=== PATIENT | male | born 1995 | race Caucasian/White ===

== ENCOUNTER 2023-06-11 08:52 | Outpatient (AMB) | payer OTHER, SELFPAY ==
--- NOTE | 2023-06-11 09:13 | A.OFFPC_ITS ---
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 Lump left side of neck. 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 He reports a pmhx of childhood asthma- no hospitalizations or intubations. He has not been on meds for years. 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 He does report a lump on the left side of his neck that he noted about 4-5 months ago. He states he made this appointment because he noted that it has not really gone away. No fevers, chills, nightsweats, weight loss, difficulty swallowing. No n/v. No difficulty swallowing. He was sick with a viral uri prior to developing the lump. No overlying skin changes. Denies frequent infections. He does request STD screening today but is asymptomatic. He works full-time as a high school teacher vocational training. COUNTS INCLUDE 234 BEDS AT THE [facility] Family History (Updated 06/11/23 @ 09:44 by Amairani Wang CMA) Mother Diabetes Maternal Grandmother Diabetes Father Skin cancer Social History Housing: House Patient Tobacco Use Status: Never used Tobacco e-Cigarette/Vaping Use: Never Used Second Hand Smoke Exposure: No service: No Current occupational status: employed Current occupation: [employer] Current occupational exposures/hazards: No Cognitive needs: No Hearing needs: No Vision needs: No Questionnaire PHQ-9 Over the last 2 weeks, how often have you been bothered by any of the following problems? 1. Little interest or pleasure in doing things: not at all 2. Feeling down, depressed, or hopeless: not at all 3. Trouble falling or staying asleep, or sleeping too much: not at all 4. Feeling tired or having little energy: not at all 5. Poor appetite or overeating: not at all 6. Feeling bad about yourself - or that you are a failure or have let yourself or your family down: not at all 7. Trouble concentrating on things, such as reading the newspaper or watching television: not at all 8. Moving or speaking so slowly that other people could have noticed. Or the opposite - being so fidgety or restless that you have been moving around a lot more than usual: not at all 9. Thoughts that you would be better off or of hurting yourself in some way: not at all Total score: 0 Depression Screening Interpretation: Negative Depression Screening Done: Yes 45309 - PHQ-9 Billing: Yes Source: Developed by Drs. Keanu Marquez, Shefali Beck, Josiah Montana and colleagues, with an educational reynaldo from [employer]. Thrive Questionnaire Date Thrive assessed: 06/11/23 I am a: Patient What is your living situation today?: I have a steady place to live Within the past 12 months, did the food you bought not last and you didn't have the money to get more?: Never true Within the past 12 months, did you worry whether your food would run out before you got money to buy more?: Never true Do you have trouble paying for medicines?: No Do you have trouble getting transportation to medical appointments?: No Do you have trouble paying your heating and electricity bill?: No Do you have trouble taking care of your child, family member or friend?: No Do you have trouble with day-to-day activities such as bathing, preparing meals, shopping, managing finances, etc.?: No Are you currently unemployed and looking for a job?: No Are you interested in more education?: No Please select the resources that you would like help with: None Currently or been in a relationship where the following occur: no concerns reported THRIVE Score: 0 AUDIT C Alcohol Use Questionnaire (AUDIT-C) 1. How often do you have a drink containing alcohol?: 2-3 times a week 2. How many drinks containing alcohol do you have on a typical day when you are drinking?: 3 or 4 3. How often do you have six or more drinks on one occasion?: Less than monthly Total Score: 5 Score Reviewed/Action Taken: Yes (We discussed his social drinking and the risks of drinking frequently.) ANDREA-7 AMB Questionnaire ANDREA-7 Date ANDREA - 7 assessed: 06/11/23 Feeling nervous, anxious, or on edge: 0 = Not at all Not being able to stop or control worryin = Not at all Worrying too much about different things: 0 = Not at all Trouble relaxin = Not at all Being so restless that it is hard to sit still: 0 = Not at all Becoming easily annoyed or irritable: 0 = Not at all Feeling afraid as if something awful might happen: 0 = Not at all Total ANDREA-7 score (0-4 normal; 5-9 mild; 10-14 moderate; 15-21 severe): 0 Source: Developed by Drs. Keanu Marquez, Shefali Beck, Josiah Montana and colleagues, with an educational reynaldo from [employer]. ANDREA-7 Assessment Billing ANDREA-7 Assessment Tool: ANDREA-7 Assessment 66443 Physical exam (Primary Care) Vital Signs: Last Vital Signs Temp 98.3 F 06/11/23 09:18 Pulse 73 06/11/23 09:18 Resp 16 06/11/23 09:18 BP 98/70 06/11/23 09:18 Pulse Ox 100 06/11/23 09:18 Oxygen Delivery Method Room Air 06/11/23 09:18 BMI result Body Mass Index 20.5 Tobacco/Smoking Status: Tobacco use Status Tobacco use date assessed 06/11/23 06/11/23 09:19 Patient Tobacco Use Status Never used Tobacco 06/11/23 09:19 e-Cigarette/Vaping Use Never Used 06/11/23 09:19 Depression Screening Interpretation: Negative Currently or been in a relationship where the following occur: no concerns reported Const Orientation/consciousness: patient oriented x3 HENMT Ears: hearing grossly normal bilaterally and TM's normal bilaterally General nose exam: No nasal polyps present and Normal nasal mucous membranes and turbinates present Face and sinus: Yes sinuses nontender Mouth: Normal oral and palatal mucosa present Eyes Pupils: Equal, round and reactive pupils present EOM: EOMs intact bilaterally Neck Other: There is a marble-sized, rubbery, nonmobile mass noted inferiorly to the angle of the left mandible. No additional lymphadenopathy or masses palpated. Thyroid: Thyroid normal Resp Auscultation: clear to auscultation bilaterally Cardio Rate: regular rate Rhythm: regular rhythm Heart sounds: S1 normal heart sound present and S2 normal heart sound present GI Inspection: Yes normal to inspection Palpation (GI): Soft to palpation and Other GI palpation findings present (nontender, no cva tenderness) Auscultation: normoactive bowel sounds Rectal Exam - Male: Yes deferred Skin General skin exam: no rashes or lesions noted Neuro General: patient oriented x3, gait normal and no focal motor deficits Cranial nerves: Yes Equal, round and reactive pupils present Assessment and Plan Assessment & Plan (1) Encounter to establish care: Code(s): Z76.89 - Persons encountering health services in other specified circumstances Plan: Routine labs ordered today. Health maintenance reviewed. (2) Mass of Neck: Code(s): R22.1 - Localized swelling, mass and lump, neck Plan: Labs including CBC, CMP, TSH and neck ultrasound ordered. We will follow up pending test results. (3) Screening for hypercholesterolemia: Code(s): Z13.220 - Encounter for screening for lipoid disorders Plan: Lipids ordered. (4) Unprotected sexual intercourse: Code(s): Z72.51 - High risk heterosexual behavior Plan: STD panel ordered. Patient is asymptomatic. Advised to follow up if he develops any signs and symptoms. Advised to use condoms. Plan Follow up in 1 month for CPE. Sooner if needed. Patient understands and agrees with the plan. Orders: Orders Complete Blood Count Auto Diff Today R22.1 - Localized swelling, mass and lump, neck, Z13.220 - Encounter for screening for lipoid disorders, Z72.51 - High risk heterosexual behavior, Z76.89 - Persons encountering health services in other specified circumstances Comprehensive [place]. Panel Fast Today R22.1 - Localized swelling, mass and lump, neck, Z13.220 - Encounter for screening for lipoid disorders, Z72.51 - High risk heterosexual behavior, Z76.89 - Persons encountering health services in other specified circumstances TSH reflex Free T4 Today R22.1 - Localized swelling, mass and lump, neck, Z13.220 - Encounter for screening for lipoid disorders, Z72.51 - High risk heterosexual behavior, Z76.89 - Persons encountering health services in other specified circumstances Hepatitis C Antibody Today Z11.3 - Encounter for screening for infections with a predominantly sexual mode of transmission HIV Ab/Ag Today Z11.3 - Encounter for screening for infections with a predominantly sexual mode of transmission Syphilis Screen Today Z11.3 - Encounter for screening for infections with a predominantly sexual mode of transmission CT NG by PCR Today Z11.3 - Encounter for screening for infections with a predominantly sexual mode of transmission Lipid Panel Today R22.1 - Localized swelling, mass and lump, neck, Z13.220 - Encounter for screening for lipoid disorders, Z72.51 - High risk heterosexual behavior, Z76.89 - Persons encountering health services in other specified circumstances US soft tiss head and/or neck Today R22.1 - Localized swelling, mass and lump, neck, Z13.220 - Encounter for screening for lipoid disorders, Z72.51 - High risk heterosexual behavior, Z76.89 - Persons encountering health services in other specified circumstances Coding Level of Care Code New Pt Level 3 (08624) Diagnoses Encounter to establish care Z76.89 Mass of Neck R22.1 Screening for hypercholesterolemia Z13.220 Unprotected sexual intercourse Z72.51 Additional Codes ANDREA-7 Assessment Billing - ANDREA-7 Assessment Tool: ANDREA-7 Assessment 22693 ([id number])
[2023-06-11 09:18] VITALS: BP 98/70; PULSE 73; RESP 16; TEMP 36.8; O2SAT 100; BMI 20.5
== END 2023-06-11 09:44 | disposition home or self-care (01) ==
PROVIDERS: PCP Family Medicine; Visit Provider Physician Assistant
DX: R22.1 Localized swelling, mass and lump, neck (principal); Z13.220 Encounter for screening for lipoid disorders; Z72.51 High risk heterosexual behavior
CPT/HCPCS: 99203

== ENCOUNTER 2023-06-11 09:47 | Outpatient (REF) | payer OTHER, SELFPAY ==
[2023-06-11 11:21] LABS: MANUAL DIFF FLAG NO
[2023-06-11 11:43] LABS: Basophils Percent Auto 0.7 % (0-2); Eosinophils Absolute Auto 0.1 X10*3/uL (0.0-0.4); Eosinophils Percent Auto 3.2 % (0-4); Hematocrit 39.8 % (42.0-52.0); Hemoglobin 13.7 g/dl (14.0-18.0); Lymphocytes Percent Auto 36.7 % (20-40); Mean Corpuscular HGB Conc 34.4 g/dl (31.0-36.0); Mean Corpuscular Hemoglobin 32.5 pg (27.0-33.0); Mean Corpuscular Volume 94.3 fL (80.0-98.0); Mean Platelet Volume 10.5 fL (9.4-12.4); Monocytes Absolute Auto 0.3 X10*3/uL (0.1-1.2); Monocytes Percent Auto 9.6 % (2-11); Neutrophils Absolute Auto 1.4 x10*3/uL (2.0-8.3); Neutrophils Percent Auto 49.8 % (45-73); Platelet Count 266 X10*3/uL (160-400); Red Blood Count 4.22 X10*6/uL (4.60-5.80); Red Cell Distribution Width 12.1 % (11.0-16.0); White Blood Count 2.8 X10*3/uL (4.8-10.8)
[2023-06-11 12:27] LABS: Alanine Aminotransferase 14 U/L (0-40); Albumin Level 4.8 g/dL (3.5-5.0); Alkaline Phosphatase 50 U/L (39-117); Anion Gap 10 (12-20); Aspartate Amino Transferase 17 U/L (5-37); Bilirubin Total 1.1 mg/dL (0.0-1.0); Blood Urea Nitrogen 12 mg/dL (9-16); Calcium 9.5 mg/dL (8.4-10.2); Carbon Dioxide 29 mmol/L (22-29); Chloride 105 mmol/L (96-108); Cholesterol 113 mg/dL (<200); Estimated Glomerular Filt Rate > 60; Glucose Fasting 91 mg/dL (60-99); HDL Cholesterol 54 mg/dL (>40); LDL Cholesterol Calculated 51 mg/dL (<100); Potassium 3.7 mmol/L (3.3-5.1); Sodium 140 mmol/L (135-145); Total Protein 7.6 g/dL (6.5-8.0); Triglycerides 44 mg/dL (<150)
[2023-06-11 12:30] LABS: Syphilis Screen Nonreactive (Nonreactive)
[2023-06-11 12:32] LABS: HIV AB/AG Nonreactive (Nonreactive); HIV Num 1 0.05 S/CO (0.00-0.99); ~HepC Num1 0.13 S/CO (0.00-0.79); ~Hepatitis C Antibody Nonreactive (Nonreactive)
[2023-06-11 14:10] LABS: CT PCR NOT DETECTED (Not Detect.); NG PCR NOT DETECTED (Not Detect.)
== END 2023-06-11 09:48 | disposition home or self-care (01) ==
LOC: HO.WFDLDS 09:47
PROVIDERS: Visit Provider Physician Assistant
DX: R22.1 Localized swelling, mass and lump, neck (principal); Z13.220 Encounter for screening for lipoid disorders; Z72.51 High risk heterosexual behavior; Z76.89 Persons encountering health services in other specified circumstances; Z11.3 Encounter for screening for infections with a predominantly sexual mode of transmission
CPT/HCPCS: 0353U; 36415; 80053; 80061; 84443; 85025; 86780; 86803; 87389

== ENCOUNTER 2023-06-17 15:09 | Outpatient (REF) | payer OTHER, SELFPAY ==
--- NOTE | ~2023-06-17 | US_ITS ---
EXAMINATION: US SOFT TISSUE OF THE NECK CLINICAL INFORMATION: Localized swelling, mass and lump, neck. COMPARISON: None available. TECHNIQUE: Linear transducer grayscale and color Doppler examination of the left neck. FINDINGS: There is a well-defined anechoic cyst without septations or internal vascularity measuring 2.8 x 1.5 x 2.2 cm in the left upper neck adjacent to the parotid gland. No adenopathy is seen. No other masses are seen. US/US soft tiss head and/or neck IMPRESSION: Benign-appearing cyst in the left upper neck.
== END 2023-06-17 15:10 | disposition home or self-care (01) ==
LOC: HO.US 15:09
PROVIDERS: PCP Physician Assistant; Visit Provider Physician Assistant
DX: R22.1 Localized swelling, mass and lump, neck (principal); Z76.89 Persons encountering health services in other specified circumstances; Z72.51 High risk heterosexual behavior
CPT/HCPCS: 76536

== ENCOUNTER 2023-06-28 10:35 | Outpatient (REF) | payer OTHER, SELFPAY ==
[2023-06-28 10:46] LABS: MANUAL DIFF FLAG NO
[2023-06-28 11:03] LABS: Basophils Percent Auto 0.8 % (0-2); Eosinophils Absolute Auto 0.1 X10*3/uL (0.0-0.4); Hematocrit 40.7 % (42.0-52.0); Lymphocytes Absolute Auto 1.6 X10*3/uL (1.2-4.9); Mean Corpuscular HGB Conc 34.4 g/dl (31.0-36.0); Mean Corpuscular Hemoglobin 32.3 pg (27.0-33.0); Monocytes Absolute Auto 0.4 X10*3/uL (0.1-1.2); Monocytes Percent Auto 10.2 % (2-11); Neutrophils Absolute Auto 1.6 x10*3/uL (2.0-8.3); Platelet Count 263 X10*3/uL (160-400); Red Blood Count 4.33 X10*6/uL (4.60-5.80); Red Cell Distribution Width 11.9 % (11.0-16.0); White Blood Count 3.7 X10*3/uL (4.8-10.8)
[2023-06-28 12:16] LABS: Alanine Aminotransferase 16 U/L (0-40); Alkaline Phosphatase 52 U/L (39-117); Aspartate Amino Transferase 20 U/L (5-37); Bilirubin Direct 0.2 mg/dL (0.0-0.5); Bilirubin Total 0.6 mg/dL (0.0-1.0); Iron 101 mcg/dL (45-160); Percent Iron Saturation 40 % (15-50); Total Iron Binding Capacity 254 mcg/dL (228-428); Total Protein 7.9 g/dL (6.5-8.0); Unsaturated Iron Binding 153 ug/dL
[2023-06-28 12:19] LABS: Ferritin 210 ng/mL (20-250)
[2023-06-28 12:36] LABS: Folate 13.1 ng/mL (> or = 4.0); Vitamin B12 457 pg/mL (200-900)
== END 2023-06-28 10:36 | disposition home or self-care (01) ==
LOC: HO.LAB 10:35
PROVIDERS: PCP Physician Assistant; Visit Provider Physician Assistant
DX: D64.9 Anemia, unspecified (principal); R17 Unspecified jaundice; R79.89 Other specified abnormal findings of blood chemistry
CPT/HCPCS: 36415; 80076; 82607; 82728; 82746; 83540; 85025

== ENCOUNTER 2023-07-17 14:45 | Outpatient (AMB) | payer OTHER, SELFPAY ==
--- NOTE | 2023-07-17 14:47 | A.OFFVIS_ITS ---
Vital Signs 3 07/17/23 14:53 Height 6 ft Weight 147 lb BMI 19.9 BP 128/74 Blood Pressure Location Rt brachial Position Sitting Pulse 68 Intake Visit Reasons: Mass of neck Intake Note: Patient referred by PCP Ursula Woodard PA-C for evaluation and treatment of a mass of the Lt neck. First noticed in January. Pt c/o:no changes in size. Denies inflammation, tenderness. 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 He reported having a sore throat at the time of the onset of the lump. He denies any pain associated with the mass or any intraoral lesions. He denies any significant changes in the size of the lesion and denies any overlying skin changes. He generally feels well and denies any fever, chills, weight loss, or anorexia. Workup with ultrasound of the neck revealed a well defined anechoic cyst without septations or internal vascularity measuring 2.8 x 1.5 x 2.2 cm in the left upper neck adjacent to the parotid gland. No adenopathy is seen and no other masses are seen. This was felt to be a benign appearing cyst of the left upper neck. I reviewed the ultrasound findings with the patient at the time of this visit [facility] Surgical History [place] teeth extracted Family History Mother Diabetes Maternal Grandmother Diabetes Father Skin cancer Social History Housing: House Alcohol intake: current Alcohol intake frequency: holidays/special occasions only Alcohol type: beer Patient Tobacco Use Status: Never used Tobacco e-Cigarette/Vaping Use: Never Used Second Hand Smoke Exposure: No service: No Current occupational status: employed Current occupation: [employer] Current occupational exposures/hazards: No Cognitive needs: No Hearing needs: No Vision needs: No Review of Systems Const All systems reviewed & are unremarkable except as noted in HPI and below Physical Exam Vital Signs: Last Vital Signs Pulse 68 07/17/23 14:53 BP 128/74 07/17/23 14:53 BMI result Body Mass Index 19.9 Const General: cooperative and no acute distress Nutritional Appearance: well nourished Orientation/consciousness: patient oriented x3 Limitations: no limitations HEENT Head: Yes normocephalic and Yes atraumatic Head images: 2 1. Palpable cyst located in the left neck behind the angle of the mandible, superficial to parotid gland. No overlying skin changes appreciated. No discharge noted. Ears: hearing grossly normal bilaterally Resp Effort & Inspection: normal respiratory effort, no audible wheezes, no cough and no respiratory distress Cardio Jugular venous distension: no JVD GI Inspection: Yes normal to inspection Skin Other: Warm, dry, no rash Neuro General: patient oriented x3 Extrem General: Yes no clubbing, cyanosis or edema Assessment & Plan Assessment & Plan (1) Lump on neck: Code(s): R22.1 - Localized swelling, mass and lump, neck Category: Medical Plan 28-year-old male patient presenting with a left neck lump which on workup was found to be a cyst located adjacent to the parotid gland. Although this may be a congenital cyst such as a brachial cleft cyst its appearance by ultrasound appears to be a simple cyst. He is currently asymptomatic and therefore was given the options of continued observation verses cyst aspiration under ultrasound guidance or excision. My preference was to continue observation as he remains asymptomatic. I suggested he return in 1 month for repeat examination. If the lesion is unchanged or become symptomatic cyst aspiration would be recommended. He expressed understanding and agrees with the plan. He will follow-up in 1 month. Coding Level of Care Code New Pt Level 4 (58382) Diagnoses Lump on neck R22.1
[2023-07-17 14:53] VITALS: BP 128/74; PULSE 68; BMI 19.9
== END 2023-07-17 15:07 | disposition home or self-care (01) ==
PROVIDERS: PCP Physician Assistant; Visit Provider Surgery
DX: R22.1 Localized swelling, mass and lump, neck (principal)
CPT/HCPCS: 99204

== ENCOUNTER → 2023-07-17 14:45 | Outpatient (BNVA) | payer OTHER, SELFPAY | PROVIDERS: PCP Physician Assistant; Visit Provider Surgery ==

== ENCOUNTER 2024-12-02 13:24 | Outpatient (AMB) | payer OTHER, SELFPAY ==
--- NOTE | 2024-12-02 13:35 | MHC.PC.OV ---
Vital Signs 12/02/24 13:37 Weight 149 lb 2 oz BP 116/72 Blood Pressure Location Lt brachial Position Sitting Respiration 14 Pulse 89 Pulse Source Pulse Oximeter Temp 98.8 F Temp Source Oral Pulse Oximetry (%) 97 Oxygen Delivery Method Room Air Intake Visit Reasons: Lower-Back Pain Following Urinary Tract Infection Intake Note: Had UTI in May 2024. Was seen by urgent care. Has been having lower back pain on both sides. 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 He states that in May he went to an urgent care center with complaints of increased urinary frequency, urgency, dysuria, fever, chill and back pain. He was diagnosed with a UTI and treated with antibiotics. He states that everything resolved except for back pain. He states it is on on both sides where he suspects his kidneys are located. Symptoms he does have some increased urinary frequency and urgency. He denies any current fever, chills, n/v, weight loss, abdominal pain. NO current urinary sx. He does urinate after intercourse (previously did not in May). No blood in urine. He has not tried anything for this. 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 1. Little interest or pleasure in doing things: not at all 2. Feeling down, depressed, or hopeless: not at all 3. Trouble falling or staying asleep, or sleeping too much: not at all 4. Feeling tired or having little energy: not at all 5. Poor appetite or overeating: not at all 6. Feeling bad about yourself - or that you are a failure or have let yourself or your family down: not at all 7. Trouble concentrating on things, such as reading the newspaper or watching television: not at all 8. Moving or speaking so slowly that other people could have noticed. Or the opposite - being so fidgety or restless that you have been moving around a lot more than usual: not at all 9. Thoughts that you would be better off or of hurting yourself in some way: not at all Total score: 0 Source: Developed by Drs. Keanu Marquez, Shefali Beck, Josiah Montana and colleagues, with an educational reynaldo from [employer]. Thrive Questionnaire Date Thrive assessed: 11/29/24 I am a: Patient What is your living situation today?: I have a steady place to live Within the past 12 months, did the food you bought not last and you didn't have the money to get more?: Never true Within the past 12 months, did you worry whether your food would run out before you got money to buy more?: Never true Do you have trouble paying for medicines?: No Do you have trouble getting transportation to medical appointments?: No Do you have trouble paying your heating and electricity bill?: No Do you have trouble taking care of your child, family member or friend?: No Do you have trouble with day-to-day activities such as bathing, preparing meals, shopping, managing finances, etc.?: No Are you currently unemployed and looking for a job?: No Are you interested in more education?: No Please select the resources that you would like help with: None Currently or been in a relationship where the following occur: No concerns reported THRIVE Score: 0 AUDIT C Alcohol Use Questionnaire (AUDIT-C) 1. How often do you have a drink containing alcohol?: 2-3 times a week 2. How many drinks containing alcohol do you have on a typical day when you are drinking?: 3 or 4 3. How often do you have six or more drinks on one occasion?: Monthly Total Score: 6 ANDREA-7 AMB Questionnaire ANDREA-7 Date ANDREA - 7 assessed: 06/11/23 Feeling nervous, anxious, or on edge: 0 = Not at all Not being able to stop or control worryin = Not at all Worrying too much about different things: 0 = Not at all Trouble relaxin = Not at all Being so restless that it is hard to sit still: 0 = Not at all Becoming easily annoyed or irritable: 0 = Not at all Feeling afraid as if something awful might happen: 0 = Not at all Total ANDREA-7 score (0-4 normal; 5-9 mild; 10-14 moderate; 15-21 severe): 0 Source: Developed by Drs. Keanu Marquez, Shefali Beck, Josiah Montana and colleagues, with an educational reynaldo from [employer]. Physical exam (Primary Care) Vital Signs: Last Vital Signs Temp 98.8 F 12/02/24 13:37 Pulse 89 12/02/24 13:37 Resp 14 12/02/24 13:37 BP 116/72 12/02/24 13:37 Pulse Ox 97 12/02/24 13:37 Oxygen Delivery Method Room Air 12/02/24 13:37 Tobacco/Smoking Status: Tobacco use Status Tobacco use date assessed 12/02/24 12/02/24 13:39 Patient Tobacco Use Status Never used Tobacco 12/02/24 13:39 e-Cigarette/Vaping Use Never Used 12/02/24 13:39 PHQ-9: PHQ-9 Score PHQ-9: Total score 0 12/02/24 13:39 Thrive Assessment: Date of Thrive Assessment Date Thrive assessed 11/29/24 12/02/24 13:39 Currently or been in a relationship where the following occur: No concerns reported Const Orientation/consciousness: patient oriented x3 HENMT Ears: hearing grossly normal bilaterally Neck Thyroid: Thyroid normal Lymphatic: no lymphadenopathy noted Resp Auscultation: clear to auscultation bilaterally Cardio Rate: regular rate Rhythm: regular rhythm Heart sounds: S1 normal heart sound present and S2 normal heart sound present GI Inspection: Yes normal to inspection Palpation (GI): Soft to palpation and Other GI palpation findings present (nontender, no cva tenderness) Auscultation: normoactive bowel sounds Rectal Exam - Male: Yes deferred Skin General skin exam: no rashes or lesions noted Neuro General: patient oriented x3, gait normal and no focal motor deficits Coding Level of Care Code Est Pt Level 4 (62664) Complex EM visit Add On G2211 Diagnoses Bilateral flank pain R10.A3 UTI symptoms R39.9 Assessment & Plan Assessment & Plan (1) Bilateral flank pain: Code(s): R10.A3 - Flank pain, bilateral Category: Medical Plan: u/s ordered labs ordered xray ordered (2) UTI symptoms: Code(s): R39.9 - Unspecified symptoms and signs involving the genitourinary system Category: Medical Plan: as above Plan if work up neg. will consider musculoskeletal etiology and refer to pt Orders: Orders Basic Metabolic Panel Today R10.A3 - Flank pain, bilateral, R39.9 - Unspecified symptoms and signs involving the genitourinary system Prostate Specific Antigen Scr Today R10.A3 - Flank pain, bilateral, R39.9 - Unspecified symptoms and signs involving the genitourinary system, Z01.89 - Encounter for other specified special examinations XR thoracic spine 3V Today M54.6 - Pain in thoracic spine Complete Blood Count Auto Diff Today R10.A3 - Flank pain, bilateral, R39.9 - Unspecified symptoms and signs involving the genitourinary system CT NG by PCR Urine Today R10.A3 - Flank pain, bilateral, R30.0 - Dysuria, R39.9 - Unspecified symptoms and signs involving the genitourinary system UA CC w/rflx Micro + Cult Today R30.0 - Dysuria Patient Instructions: get labs and urine done - no need to make an appointment the ultrasound will be scheduled and they will call you the back xray you can go whenever it works for you over to [facility] or [facility]
[2024-12-02 13:37] VITALS: BP 116/72; PULSE 89; RESP 14; TEMP 37.1; O2SAT 97
== END 2024-12-02 13:49 | disposition home or self-care (01) ==
LOC: HO.HMCFM 13:24
PROVIDERS: PCP Physician Assistant; Visit Provider Physician Assistant
DX: R10.A3 Flank pain, bilateral (principal); R39.9 Unspecified symptoms and signs involving the genitourinary system

== ENCOUNTER 2024-12-02 13:24 | Outpatient (REF) | payer OTHER, SELFPAY ==
[2024-12-02 17:52] LABS: MANUAL DIFF FLAG NO
[2024-12-02 18:03] LABS: Anion Gap 12 (12-20); Blood Urea Nitrogen 10 mg/dL (9-16); Calcium 9.4 mg/dL (8.4-10.2); Carbon Dioxide 28 mmol/L (22-29); Chloride 106 mmol/L (96-108); Estimated Glomerular Filt Rate > 60; Potassium 3.8 mmol/L (3.3-5.1); Sodium 142 mmol/L (135-145)
[2024-12-02 18:07] LABS: Hematocrit 38.9 % (42.0-52.0); Hemoglobin 13.5 g/dl (14.0-18.0); Imm Gran Abs Auto 0.01 X10*3/uL (0.00-0.03); Imm Gran Pct Auto 0.3 % (0.0-0.4); Lymphocytes Absolute Auto 1.0 X10*3/uL (1.2-4.9); Mean Corpuscular HGB Conc 34.7 g/dl (31.0-36.0); Mean Corpuscular Hemoglobin 32.6 pg (27.0-33.0); Mean Corpuscular Volume 94.0 fL (80.0-98.0); NRBC Abs Auto 0.000 X10*3/uL (0.0-0.012); NRBC Pct Auto 0.0 /100WBC (0.0-0.2); Platelet Count 262 X10*3/uL (160-400); Red Blood Count 4.14 X10*6/uL (4.60-5.80); White Blood Count 3.2 X10*3/uL (4.8-10.8)
[2024-12-02 18:11] LABS: Appearance Urine Clear; Glucose Urine UA Negative (Negative); PH 8.5 (5.0-9.0); Specific Gravity - Urine 1.015 (1.005-1.025); UMIC TRIGGER UACC YES
[2024-12-02 18:35] LABS: UACC Culture Trigger YES
[2024-12-03 03:47] LABS: CT PCR Urine NOT DETECTED (Not Detect.); NG PCR Urine NOT DETECTED (Not Detect.)
== END 2024-12-02 13:25 | disposition home or self-care (01) ==
LOC: HO.WFDLDS 13:24
PROVIDERS: PCP Physician Assistant; Visit Provider Physician Assistant
DX: Z01.89 Encounter for other specified special examinations (principal); Z12.5 Encounter for screening for malignant neoplasm of prostate; R10.A3 Flank pain, bilateral; R39.9 Unspecified symptoms and signs involving the genitourinary system; R30.0 Dysuria
CPT/HCPCS: 80048; 81001; 84153; 85025; 87086; 87491; 87591

== ENCOUNTER 2024-12-17 10:10 | Outpatient (REF) | payer OTHER, SELFPAY ==
--- NOTE | ~2024-12-17 | XR_ITS ---
EXAMINATION: XR THORACIC SPINE CLINICAL INFORMATION: M54.6 - Pain in thoracic spine COMPARISON: None available. TECHNIQUE: 4 views of the thoracic spine were obtained. FINDINGS: There is straightening of the spinal curvature. The upper thoracic vertebral bodies are obscured on the lateral view, by overlapping structures. In the visualized thoracic spine, there is normal alignment. Vertebral body heights are maintained. No evidence of acute fracture or spondylolisthesis. Disc spaces are maintained. No suspicious lytic or blastic lesions identified. No suspicious findings in the visualized lung. No acute findings identified in the partially visualized cervical spine as seen on the swimmer's view. XR/XR thoracic spine 3V IMPRESSION: The upper thoracic vertebral bodies are obscured on the lateral projection, limiting evaluation. In the visualized spine, no radiographic evidence of acute findings. Electronically signed by: Pb Beth MD 12/17/2024 10:44 AM EDT
--- OUTSIDE RECORDS SUMMARY | 2024-12-17 11:34 | XMS_ITS | Encounter Summary ---
Author Organization [facility] Address [address] [place] [address] Phone Care Team Providers Care Touch Up Painter Name Role Phone Mili Padron MD Primary Care Provider Unava ilable Encounter Details Date Type Department Care Team (Late st Contact Info) Description 08/22/2011 Documentation [facility] [place] [address] [place] [address] Family Medicine, Physician [address] [place] [address] Social History Tobacco Use Types Packs/Day Years Used Date Smoking Tobacco: Never Assessed Sex and Gender Information Value Date Recorded Sex Assigned at Not on file Legal Sex Male 5:00 PM EDT Gender Identity Not on file Sexual Orientation Not on file documented as of this encounter Plan of Treatment Not on file documented as of this encounter Visit Diagnoses Not on filedocumented in this encounter Care Teams Touch Up Painter Relationship Specialty Start Date End Date Mili Padron MD PCP - General 10/04/16 03/13/23 documented as of this encounter
--- OUTSIDE RECORDS SUMMARY | 2024-12-17 11:34 | XMS_ITS | Encounter Summary ---
Author Organization [facility] Address [address] [place] [address] Phone Care Team Providers Care Career Portals Teacher Name Role Phone Mili Padron MD Primary Care Provider Unava ilable Encounter Details Date Type Department Care Team (Late st Contact Info) Description 07/12/2011 Documentation [facility] [place] Family Medicine [address] [place], [place] [phone] Family Medicine, Physician [address] [place] [address] Social History Tobacco Use Types Packs/Day Years [...] on filedocumented in this encounter Care Teams Career Portals Teacher Relationship Specialty Start Date End Date Mili Padron MD PCP - General 10/04/16 03/13/23 documented as of this encounter
--- OUTSIDE RECORDS SUMMARY | 2024-12-17 11:34 | XMS_ITS | Encounter Summary ---
Author Organization [facility] Address [address] [place] [address] Phone Care Team Providers Care Commercial Food Instructor Name Role Phone Mili Padron MD Primary Care Provider Unava ilable Encounter Details Date Type Department Care Team (Late st Contact Info) Description 05/23/2014 Documentation [facility] [place] Family Medicine [address] [place], [place] [phone] Family Medicine, Physician [address] [place] [address] Social History Tobacco Use Types Packs/Day Years [...] on filedocumented in this encounter Care Teams Commercial Food Instructor Relationship Specialty Start Date End Date Mili Padron MD PCP - General 10/04/16 03/13/23 documented as of this encounter
--- OUTSIDE RECORDS SUMMARY | 2024-12-17 11:34 | XMS_ITS | Encounter Summary ---
Author Organization [facility] Address [address] [place] [address] Phone Care Team Providers Care Band Edger Name Role Phone Mili Padron MD Primary Care Provider Unava ilable Encounter Details Date Type Department Care Team (Late st Contact Info) Description 12/20/[address] [facility] [place] Family Medicine [address] [place], [place] [phone] Family Medicine, Physician [address] [place] [address] Social History Tobacco Use Types Packs/Day Years [...] on filedocumented in this encounter Care Teams Band Edger Relationship Specialty Start Date End Date Mili Padron MD PCP - General 10/04/16 03/13/23 documented as of this encounter
--- OUTSIDE RECORDS SUMMARY | 2024-12-17 11:34 | XMS_ITS | Clinical Summary ---
Author Organization [facility] Address [address] [place] [address] Phone Care Team Providers Care Route Inspector Name Role Phone Cristopher Esteban MD Primary Care Provider Allergies No known active allergies Medications No known medications Encounters Date Type Department Care Team Description 09/20/2024 5:40 PM EDT Office Visit [facility] [address] [place] [address] Marleny Dixon NP Dysuria (Primary Dx) from Last 3 Months Social History Tobacco Use Types Packs/Day Years Used Date Smoking Tobacco: Never Assessed Education Answer Date Recorded Are you interested in more education? Not on annalee e 01/15/2023 Are you concerned about learning? Not on file 01/15/2023 No 01/15/2023 No 01/15/2023 Digital Access Answer Date Recorded No 01/15/2023 No 01/15/2023 Reliable internet access at home? Not on file 01/15/2023 Device with a working camera? Not on file Sex and Gender Information Value Date Recorded Sex Assigned at Not on file Legal Sex Male 11:24 AM EST Gender Identity Not on file Sexual Orientation Not on file Last Filed Vital Signs Vital Sign Reading Time Taken Comments Blood Pressure 121/80 09/20/2024 6:28 PM EDT Pulse 83 09/20/2024 6:28 PM EDT Temperature 36.4 C (97.6 F) 09/20/2024 6:28 PM EDT Respiratory Rate 20 09/20/2024 6:28 PM EDT Oxygen Saturation 97% 09/20/2024 6:28 PM EDT Inhaled Oxygen Concentration - - Weight 65.8 kg (145 lb) 09/20/2024 6:28 PM EDT Height 182.9 cm (6') 09/20/2024 6:28 PM EDT Body Mass Index 19.67 09/20/2024 6:28 PM EDT Plan of Treatment Health Maintenance Due Date Last Done Comments DEPRESSION SCREENING 2008 SMOKING Hx and SMOKELESS TOBACCO SCREENING 01/28/2009 HEPATITIS C SCREENING 01/28/2014 HIV ONE-TIME SCREENING (18-6 5 YEARS) 01/28/2014 HEPATITIS A VACCINES (2 of 2 - 2-dose series) 03/19/2015 09/16/2014 Adult Td,Tdap Booster 12/20/2018 12/20/2008 INFLUENZA VACCINE (#1) 2024 2, 12/06/2015, 12/09/2014 COVID-19 VACCINE (2024-2 6 season) 2024 MENINGOCOCCAL VACCINES (ACWY) Completed 09/16/2014 HIB VACCINES Aged Out No longer eligi ble based on patient's age to complete this topic MENINGOCOCCAL VACCINES (B) Aged Out N o longer eligible based on patient's age to complete this topic PNEUMOCOCCAL VACCINES (0-49 years) Aged Out No longer eligible b ased on patient's age to complete this topic Medical Devices Not on file Procedures Procedure Name Priority Date/Time Associated Diagnosis Comments URINE CULTURE Routine 09/20/2024 7:03 PM EDT Dysuria CHLAMYDIA TRACHOMATIS AND NEISSERIA GONORRHOEAE NUCLEIC ACID DETECTION Routine 09/20/2024 7:03 PM EDT Dysuria POCT URINE DIPSTICK Routine 09/20/2024 6 :26 PM EDT from Last 3 Months Results * (ABNORMAL) Urine Culture (09/20/2024 7:03 PM EDT) Special Requests None 09/20/2024 7:03 PM EDT [facility] Urine Culture 10,000 to 100,000 colony forming units per mL MIXED DAMIEN (3 OR MORE COLONY TYPES) Culture indicates contamination . Please resubmit if necessary.(A) 09/22/2024 7:46 AM EDT [facility] Urine (Urine) 09/20/2024 7:0 3 PM EDT 09/20/2024 7:41 PM EDT Comment:URINE Marleny Dixon NP MICROBIOLOGY - GENERAL ORD ERABLES Final Result Performing Organization Address [facility] Co de Phone Number [address] [address] * Chlamydia Trachomatis and Neisseria Gonorrhoeae Nucleic Acid Detection (09/20/2024 7:03 PM EDT) CHLAMYDIA TRACHOMATIS Not Detected Not Detected [facility] NEISERIA GONORRHOEAE Not Detected Not Detected [facility] SPECIMEN TYPE URINE [facility] Urine (Urine) 09/20/2024 7:0 3 PM EDT 09/20/2024 7:40 PM EDT Marleny Dixon NP NON CULTURE MICROBIOLOGY F inal Result Performing Organization Address [facility] Co de Phone Number [address] [address] * POCT Urine Dipstick (Automated) (09/20/2024 6:26 PM EDT) COLOR Yellow [facility] TURBIDITY Clear [facility] GLUCOSE, POCT Negative Negative [facility] KETONE, POCT Negative Negative [facility] OCCULT BLOOD, POCT Negative Negative [facility] SPECIFIC GRAVITY, POCT 1.010 1.001 - 1.030 [facility] ALBUMIN, POCT Negative Negative [facility] Bili Negative Negative [facility] Urobilinogen 0.2 <1.0 [facility] NITRITE, POCT Negative Negative [facility] PH, POCT 7.0 5.0 - 8.0 [facility] WBC SCREEN, POCT Negative Negative [employer] [facility] 09/20/2024 6:26 PM EDT 09/20/2024 6:28 PM EDT Marleny Dixon SUPERVISOR AIRCRAFT MAINTENANCE POINT OF CARE TEST ORDERAB LES Final Result [facility] [address] [address], [facility] [phone] from Last 3 Months Insurance O O O O O O Care Teams Route Inspector Relationship Specialty Start Date End Date Cristopher Esteban MD [address] [place] [address] Dr Orozco, [place] [address] PCP - General Internal Medicine 01/15/23 Additional Source Comments The information contained in this document represents components of the legal health record. It is not the complete legal health record.[facility]
--- OUTSIDE RECORDS SUMMARY | 2024-12-17 11:34 | XMS_ITS | Clinical Summary ---
Author Organization [facility] Address [address] [place] [address] Phone Care Team Providers Care Php Programmer Name Role Phone Unavailable Primary Care Provider Unavailabl e Immunizations Immunization Administration Dates Next Due DTP 08/10/1997, 7,1996,04/05 DTaP 5 10/07/2001 H1N1 01/24/2009 HPV, Quadrivalent 09/13/2013,12/04/2012,09/10/19 13 Hep A, ped/adol 09/16/2014 Hep B, ped/adol 1996,1996,1996 Hib (PRP-T) 05/09/1997, 7,1996,04/05 IPV 10/07/2001 Influenza Split 12/04/2012, 2,12/06/2010,11/22 Influenza, injectable, quadrivalent 12/06/2015 Influenza, injectable, quadr ivalent, preservative free 12/17/2013 Influenza, injectable, trivalent 11/16/2008,11/25 MMR 06/27/2000,02/02/1997 Meningococcal Conj (Menactra) MCV4P 09/16/2014,1 OPV 1996,1996,1996 Tdap 12/20/2008 Varicella 12/20/2008,05/09/1997 Family History Relation Name Status Comments Brother 1 Alive Brother: Alive and well, Alive and well Brother 2 Alive Brother: Alive and well, Alive and well Father Alive Father: Alive a nd well Mother Mother: Hyperth yroidism Other Family history of Hyperlipidemia, Family history of Asthma, Family history of Obesity, Family history of Seizure disorder, Family history of Migraines Social History Tobacco Use Types Packs/Day Years Used Date Smoking Tobacco: Never Comments:Never smoker Sex and Gender Information Value Date Recorded Sex Assigned at Not on file Legal Sex Male 5:00 PM EDT Gender Identity Not on file Sexual Orientation Not on file Last Filed Vital Signs Vital Sign Reading Time Taken Comments Blood Pressure 115/70 09/16/2014 12:00 AM EDT Pulse 68 09/16/2014 12:00 AM EDT Temperature 36.7 C (98 F) 05/25/2014 12:00 AM EDT Respiratory Rate - - Oxygen Saturation - - Inhaled Oxygen Concentration - - Weight 62.6 kg (138 lb) 09/16/2014 12:00 AM EDT Height 175.8 cm (5' 9.2 ) 09/16/2014 12:00 AM ED T Body Mass Index 20.26 09/16/2014 12:00 AM EDT Plan of Treatment Health Maintenance Due Date Last Done Comments Hepatitis A Vaccines (2 of 2 - 2-dose series) 03/19/2015 09/16/2014 DTaP,Tdap,and Td Vaccines (7 - Td or Tdap) 12/20/2018 12/20/2008, 10/07/2001, 08/10/1997, Additional history exists Influenza Vaccines (#1) 2024 12/06/19 16, 12/17/2013, 12/04/2012, Additional history exists COVID-19 Vaccine ( season) 2024 Hepatitis B Vaccines Completed 1996, 1996, 1996 HIB Vaccines Completed 05/09/1997, 07/25, 1996, Additional history exists MMR Vaccines Completed 06/27/2000, 02/02/1997 IPV Vaccines Completed 10/07/2001, 07/25, 1996, Additional history exists Varicella Vaccines Completed 12/20/2008, 05/09/1997 HPV Vaccines Completed 09/13/2013, 11/24, 09/09/2012 Meningococcal Vaccine Completed 09/16/2014, 009 Men B Vaccine Aged Out No longer elig ible based on patient's age to complete this topic Pneumococcal Vaccine Aged Out No long er eligible based on patient's age to complete this topic
--- OUTSIDE RECORDS SUMMARY | 2024-12-17 11:34 | XMS_ITS | Encounter Summary ---
Author Organization [facility] Address [address] [place] [address] Phone Care Team Providers Care Limited Radiology Technician Name Role Phone Mili Padron MD Primary Care Provider Unava ilable Encounter Details Date Type Department Care Team (Late st Contact Info) Description 04/09/2012 Documentation [facility] [place] Family Medicine [address] [place] [address] Family Medicine, Physician [address] [place] [address] Social History Tobacco Use Types Packs/Day Years [...] on filedocumented in this encounter Care Teams Limited Radiology Technician Relationship Specialty Start Date End Date Mili Padron MD PCP - General 10/04/16 03/13/23 documented as of this encounter
--- OUTSIDE RECORDS SUMMARY | 2024-12-17 11:34 | XMS_ITS | Encounter Summary ---
Author Organization [facility] Address [address] [place] [address] Phone Care Team Providers Care Director Of Professional Services Name Role Phone Mili Padron MD Primary Care Provider Unava ilable Encounter Details Date Type Department Care Team (Late st Contact Info) Description 10/10/2016 Conversion Encounter [facility] - [address] [address] Social History Tobacco Use Types Packs/Day Years [...] on filedocumented in this encounter Care Teams Director Of Professional Services Relationship Specialty Start Date End Date Mili Padron MD PCP - General 10/04/16 03/13/23 documented as of this encounter
--- OUTSIDE RECORDS SUMMARY | 2024-12-17 11:34 | XMS_ITS | Encounter Summary ---
Author Organization [facility] Address [address] [place] [address] Phone Care Team Providers Care Managed Care Manager Name Role Phone Mili Padron MD Primary Care Provider Unava ilable Encounter Details Date Type Department Care Team (Late st Contact Info) Description 05/26/2014 Documentation [facility] [place] [address] [place], [place] [phone] Family Medicine, Physician [address] [place] [address] Social History Tobacco Use Types Packs/Day Years [...] on filedocumented in this encounter Care Teams Managed Care Manager Relationship Specialty Start Date End Date Mili Padron MD PCP - General 10/04/16 03/13/23 documented as of this encounter
--- OUTSIDE RECORDS SUMMARY | 2024-12-17 11:34 | XMS_ITS | Encounter Summary ---
Author Organization [facility] Address [address] [place] [address] Phone Care Team Providers Care Adult Basic Education Instructor Name Role Phone Mili Padron MD Primary Care Provider Unava ilable Encounter Details Date Type Department Care Team (Late st Contact Info) Description 08/22/2011 Documentation [facility] [place] [address] [place] [address] Family Medicine, Physician [address] [place] [address] Social History Tobacco Use Types Packs/Day Years [...] on filedocumented in this encounter Care Teams Adult Basic Education Instructor Relationship Specialty Start Date End Date Mili Padron MD PCP - General 10/04/16 03/13/23 documented as of this encounter
--- OUTSIDE RECORDS SUMMARY | 2024-12-17 11:34 | XMS_ITS | Encounter Summary ---
Author Organization [facility] Address [address] [place] [address] Phone Care Team Providers Care Server Manager Name Role Phone Mili Padron MD Primary Care Provider Unava ilable Encounter Details Date Type Department Care Team (Late st Contact Info) Description 09/10/2012 Documentation [facility] [place] Family Medicine [address] [place], [place] [phone] Family Medicine, Physician [address] [place] [address] Social History Tobacco Use Types Packs/Day Years [...] on filedocumented in this encounter Care Teams Server Manager Relationship Specialty Start Date End Date Mili Padron MD PCP - General 10/04/16 03/13/23 documented as of this encounter
--- OUTSIDE RECORDS SUMMARY | 2024-12-17 11:34 | XMS_ITS | Encounter Summary ---
Author Organization [facility] Address [address] [place] [address] Phone Care Team Providers Care Brownell Operator Name Role Phone Mili Padron MD Primary Care Provider Unava ilable Encounter Details Date Type Department Care Team (Late st Contact Info) Description 09/14/2013 Documentation [facility] [place] Family Medicine [address] [place], [place] [phone] Family Medicine, Physician [address] [place] [address] Social History Tobacco Use Types Packs/Day Years [...] on filedocumented in this encounter Care Teams Brownell Operator Relationship Specialty Start Date End Date Mili Padron MD PCP - General 10/04/16 03/13/23 documented as of this encounter
--- OUTSIDE RECORDS SUMMARY | 2024-12-17 11:34 | XMS_ITS | Encounter Summary ---
Author Organization [facility] Address [address] [place] [address] Phone Care Team Providers Care Referral And Information Aide Name Role Phone Mili Padron MD Primary Care Provider Unava ilable Encounter Details Date Type Department Care Team (Late st Contact Info) Description 12/07/2010 Documentation [facility] [place] Family Medicine [address] [place], [place] [phone] Family Medicine, Physician [address] [place] [address] Social History Tobacco Use Types Packs/Day Years [...] on filedocumented in this encounter Care Teams Referral And Information Aide Relationship Specialty Start Date End Date Mili Padron MD PCP - General 10/04/16 03/13/23 documented as of this encounter
--- OUTSIDE RECORDS SUMMARY | 2024-12-17 11:34 | XMS_ITS | Encounter Summary ---
Author Organization [facility] Address [address] [place] [address] Phone Care Team Providers Care Drum Drier Name Role Phone Mili Padron MD Primary Care Provider Unava ilable Encounter Details Date Type Department Care Team (Late st Contact Info) Description 09/19/2014 Documentation [facility] [place] Family Medicine [address] [place] [address] Family Medicine, Physician [address] [place] [address] Social History Tobacco Use Types Packs/Day Years [...] on filedocumented in this encounter Care Teams Drum Drier Relationship Specialty Start Date End Date Mili Padron MD PCP - General 10/04/16 03/13/23 documented as of this encounter
--- OUTSIDE RECORDS SUMMARY | 2024-12-17 11:34 | XMS_ITS | Encounter Summary ---
Author Organization [facility] Address [address] [place] [address] Phone Care Team Providers Care Salt Manager Name Role Phone Mili Padron MD Primary Care Provider Unava ilable Encounter Details Date Type Department Care Team (Late st Contact Info) Description 11/29/2009 Documentation [facility] [place] [address] [place], [place] [phone] Family Medicine, Physician [address] [place] [address] Social History Tobacco Use Types Packs/Day Years [...] on filedocumented in this encounter Care Teams Salt Manager Relationship Specialty Start Date End Date Mili Padron MD PCP - General 10/04/16 03/13/23 documented as of this encounter
--- OUTSIDE RECORDS SUMMARY | 2024-12-17 11:34 | XMS_ITS | Encounter Summary ---
Author Organization [facility] Address [address] [place] [address] Phone Care Team Providers Care Project Administrative Assistant Name Role Phone Mili Padron MD Primary Care Provider Unava ilable Encounter Details Date Type Department Care Team (Late st Contact Info) Description 12/10/2011 Documentation [facility] [place] [address] [place] [address] Family Medicine, Physician [address] [place] [address] Social History Tobacco Use Types Packs/Day Years [...] on filedocumented in this encounter Care Teams Project Administrative Assistant Relationship Specialty Start Date End Date Mili Padron MD PCP - General 10/04/16 03/13/23 documented as of this encounter
--- OUTSIDE RECORDS SUMMARY | 2024-12-17 11:34 | XMS_ITS | Encounter Summary ---
Author Organization [facility] Address [address] [place] [address] Phone Care Team Providers Care Mechanical Maintenance Supervisor Name Role Phone Mili Padron MD Primary Care Provider Unava ilable Encounter Details Date Type Department Care Team (Late st Contact Info) Description 12/09/2012 Documentation [facility] [place] Family Medicine [address] [place] [address] Family Medicine, Physician [address] [place] [address] Social History Tobacco Use Types Packs/Day Years [...] on filedocumented in this encounter Care Teams Mechanical Maintenance Supervisor Relationship Specialty Start Date End Date Mili Padron MD PCP - General 10/04/16 03/13/23 documented as of this encounter
--- OUTSIDE RECORDS SUMMARY | 2024-12-17 11:34 | XMS_ITS | Encounter Summary ---
Author Organization [facility] Address [address] [place] [address] Phone Care Team Providers Care Erp Manager Name Role Phone Mili Padron MD Primary Care Provider Unava ilable Encounter Details Date Type Department Care Team (Late st Contact Info) Description 09/19/[address] [facility] [place] Family Medicine [address] [place] [address] Family Medicine, Physician [address] [place] [address] Social History Tobacco Use Types Packs/Day Years [...] on filedocumented in this encounter Care Teams Erp Manager Relationship Specialty Start Date End Date Mili Padron MD PCP - General 10/04/16 03/13/23 documented as of this encounter
--- OUTSIDE RECORDS SUMMARY | 2024-12-17 11:34 | XMS_ITS | Encounter Summary ---
Author Organization [facility] Address [address] [place] [address] Phone Care Team Providers Care Director Market Intelligence Name Role Phone Mili Padron MD Primary Care Provider Unava ilable Encounter Details Date Type Department Care Team (Late st Contact Info) Description 12/07/2010 Documentation [facility] [place] Family Medicine [address] [place], [place] [phone] Family Medicine, Physician [address] [place] [address] Social History Tobacco Use Types Packs/Day Years [...] filedocumented in this encounter Care Teams Director Market Intelligence Relationship Specialty Start Date End Date Mili Padron MD PCP - General 10/04/16 03/13/23 documented as of this encounter
--- OUTSIDE RECORDS SUMMARY | 2024-12-17 11:34 | XMS_ITS | Encounter Summary ---
Author Organization [facility] Address [address] [place] [address] Phone Care Team Providers Care Coffee Grinder Name Role Phone Mili Padron MD Primary Care Provider Unava ilable Encounter Details Date Type Department Care Team (Late st Contact Info) Description 12/07/2010 Documentation [facility] [place] Family Medicine [address] [place], [place] [phone] Family Medicine, Physician [address] [place] [address] Social History Tobacco Use Types Packs/Day Years [...] on filedocumented in this encounter Care Teams Coffee Grinder Relationship Specialty Start Date End Date Mili Padron MD PCP - General 10/04/16 03/13/23 documented as of this encounter
--- OUTSIDE RECORDS SUMMARY | 2024-12-17 11:34 | XMS_ITS | Encounter Summary ---
Author Organization [facility] Address [address] [place] [address] Phone Care Team Providers Care Park Interpreter Name Role Phone Mili Padron MD Primary Care Provider Unava ilable Encounter Details Date Type Department Care Team (Late st Contact Info) Description 12/09/2012 Documentation [facility] [place] [address] [place] [address] Family Medicine, Physician [address] [place] [address] Social History Tobacco Use Types Packs/Day Years [...] on filedocumented in this encounter Care Teams Park Interpreter Relationship Specialty Start Date End Date Mili Padron MD PCP - General 10/04/16 03/13/23 documented as of this encounter
--- OUTSIDE RECORDS SUMMARY | 2024-12-17 11:34 | XMS_ITS | Encounter Summary ---
Author Organization [facility] Address [address] [place] [address] Phone Care Team Providers Care Violin Teacher Name Role Phone Mili Padron MD Primary Care Provider Unava ilable Encounter Details Date Type Department Care Team (Late st Contact Info) Description 09/14/2013 Documentation [facility] [place] [address] [place], [place] [phone] Family Medicine, Physician [address] [place] [address] Social History Tobacco Use Types Packs/Day Years [...] on filedocumented in this encounter Care Teams Violin Teacher Relationship Specialty Start Date End Date Mili Padron MD PCP - General 10/04/16 03/13/23 documented as of this encounter
--- OUTSIDE RECORDS SUMMARY | 2024-12-17 11:34 | XMS_ITS | Encounter Summary ---
Author Organization [facility] Address [address] [place] [address] Phone Care Team Providers Care Handtools Repairer Name Role Phone Mili Padron MD Primary Care Provider Unava ilable Encounter Details Date Type Department Care Team (Late st Contact Info) Description 09/19/2014 Documentation [facility] [place] [address] [place] [address] Family Medicine, Physician [address] [place] [address] Social History Tobacco Use Types Packs/Day Years [...] on filedocumented in this encounter Care Teams Handtools Repairer Relationship Specialty Start Date End Date Mili Padron MD PCP - General 10/04/16 03/13/23 documented as of this encounter
--- OUTSIDE RECORDS SUMMARY | 2024-12-17 11:34 | XMS_ITS | Encounter Summary ---
Author Organization [facility] Address [address] [place] [address] Phone Care Team Providers Care Liquor Commissioner Name Role Phone Mili Padron MD Primary Care Provider Unava ilable Encounter Details Date Type Department Care Team (Late st Contact Info) Description 02/23/2014 Documentation [facility] [place] Medicine [address] [place], [place] [phone] Family Medicine, Physician [address] [place] [address] Social History Tobacco Use Types Packs/Day Years [...] on filedocumented in this encounter Care Teams Liquor Commissioner Relationship Specialty Start Date End Date Mili Padron MD PCP - General 10/04/16 03/13/23 documented as of this encounter
--- OUTSIDE RECORDS SUMMARY | 2024-12-17 11:34 | XMS_ITS | Encounter Summary ---
Author Organization [facility] Address [address] [place] [address] Phone Care Team Providers Care Calendering Supervisor Name Role Phone Mili Padron MD Primary Care Provider Unava ilable Encounter Details Date Type Department Care Team (Late st Contact Info) Description 12/09/2012 Documentation [facility] [place] Family Medicine [address] [place] [address] Family Medicine, Physician [address] [place] [address] Social History Tobacco Use Types Packs/Day Years [...] on filedocumented in this encounter Care Teams Calendering Supervisor Relationship Specialty Start Date End Date Mili Padron MD PCP - General 10/04/16 03/13/23 documented as of this encounter
--- OUTSIDE RECORDS SUMMARY | 2024-12-17 11:34 | XMS_ITS | Encounter Summary ---
Author Organization [facility] Address [address] [place] [address] Phone Care Team Providers Care Plate Take Out Worker Name Role Phone Mili Padron MD Primary Care Provider Unava ilable Encounter Details Date Type Department Care Team (Late st Contact Info) Description 05/23/2014 Documentation [facility] [place] Family Medicine [address] [place], [place] [phone] Family Medicine, Physician [address] [place] [address] Social History Tobacco Use Types Packs/Day Years [...] on filedocumented in this encounter Care Teams Plate Take Out Worker Relationship Specialty Start Date End Date Mili Padron MD PCP - General 10/04/16 03/13/23 documented as of this encounter
--- OUTSIDE RECORDS SUMMARY | 2024-12-17 11:34 | XMS_ITS | Encounter Summary ---
Author Organization [facility] Address [address] [place] [address] Phone Care Team Providers Care Flue Tile Press Operator Name Role Phone Mili Padron MD Primary Care Provider Unava ilable Encounter Details Date Type Department Care Team (Late st Contact Info) Description 09/10/2012 Documentation [facility] [place] [address] [place], [place] [phone] Family Medicine, Physician [address] [place] [address] Social History Tobacco Use Types Packs/Day Years [...] on filedocumented in this encounter Care Teams Flue Tile Press Operator Relationship Specialty Start Date End Date Mili Padron MD PCP - General 10/04/16 03/13/23 documented as of this encounter
--- OUTSIDE RECORDS SUMMARY | 2024-12-17 11:34 | XMS_ITS | Encounter Summary ---
Author Organization [facility] Address [address] [place] [address] Phone Care Team Providers Care Medical Insurance Clerk Name Role Phone Mili Padron MD Primary Care Provider Unava ilable Encounter Details Date Type Department Care Team (Late st Contact Info) Description 09/14/2013 Documentation [facility] [place] [address] [place], [place] [phone] Family Medicine, Physician [address] [place] [address] Social History Tobacco Use Types Packs/Day Years [...] on filedocumented in this encounter Care Teams Medical Insurance Clerk Relationship Specialty Start Date End Date Mili Padron MD PCP - General 10/04/16 03/13/23 documented as of this encounter
--- OUTSIDE RECORDS SUMMARY | 2024-12-17 11:34 | XMS_ITS | Encounter Summary ---
Author Organization [facility] Address [address] [place] [address] Phone Care Team Providers Care Special Agent Group Insurance Name Role Phone Mili Padron MD Primary Care Provider Unava ilable Encounter Details Date Type Department Care Team (Late st Contact Info) Description 08/22/2011 Documentation [facility] [place] [address] [place] [address] Family Medicine, Physician [address] [place] [address] Social History Tobacco Use Types Packs/Day Years [...] on filedocumented in this encounter Care Teams Special Agent Group Insurance Relationship Specialty Start Date End Date Mili Padron MD PCP - General 10/04/16 03/13/23 documented as of this encounter
--- OUTSIDE RECORDS SUMMARY | 2024-12-17 11:34 | XMS_ITS | Encounter Summary ---
Author Organization [facility] Address [address] [place] [address] Phone Care Team Providers Care Singing Telegram Performer Name Role Phone Mili Padron MD Primary Care Provider Unava ilable Encounter Details Date Type Department Care Team (Late st Contact Info) Description 12/20/2013 Documentation [facility] [place] Family Medicine [address] [place], [place] [phone] Family Medicine, Physician [address] [place] [address] Social History Tobacco Use Types Packs/Day Years [...] on filedocumented in this encounter Care Teams Singing Telegram Performer Relationship Specialty Start Date End Date Mili Padron MD PCP - General 10/04/16 03/13/23 documented as of this encounter
--- OUTSIDE RECORDS SUMMARY | 2024-12-17 11:35 | XMS_ITS | Encounter Summary ---
Author Organization [facility] Address [address] [place] [address] Phone Care Team Providers Care Casino Accountant Name Role Phone Mili Padron MD Primary Care Provider Unava ilable Encounter Details Date Type Department Care Team (Late st Contact Info) Description 05/16/2009 Documentation [facility] [place] [address] [place], [place] [phone] Family Medicine, Physician [address] [place] [address] Social History Tobacco Use Types Packs/Day Years [...] on filedocumented in this encounter Care Teams Casino Accountant Relationship Specialty Start Date End Date Mili Padron MD PCP - General 10/04/16 03/13/23 documented as of this encounter
--- OUTSIDE RECORDS SUMMARY | 2024-12-17 11:35 | XMS_ITS | Encounter Summary ---
Author Organization [facility] Address [address] [place] [address] Phone Care Team Providers Care Tube Dispatcher Name Role Phone Mili Padron MD Primary Care Provider Unava ilable Encounter Details Date Type Department Care Team (Late st Contact Info) Description 09/10/2012 Documentation [facility] [place] Family Medicine [address] [place], [place] [phone] Family Medicine, Physician [address] [place] [address] Social History Tobacco Use Types Packs/Day Years [...] on filedocumented in this encounter Care Teams Tube Dispatcher Relationship Specialty Start Date End Date Mili Padron MD PCP - General 10/04/16 03/13/23 documented as of this encounter
== END 2024-12-17 10:11 | disposition home or self-care (01) ==
LOC: HO.XRAY 10:10
PROVIDERS: PCP Physician Assistant; Visit Provider Physician Assistant
DX: M54.6 Pain in thoracic spine (principal)
CPT/HCPCS: 72072

== ENCOUNTER → 2024-12-17 10:13 | Outpatient (BNV) | payer OTHER, SELFPAY | PROVIDERS: PCP Physician Assistant; Visit Provider Radiology Diagnostic Ultrasound | DX: M54.6 Pain in thoracic spine (principal) | CPT/HCPCS: 72072 ==

== ENCOUNTER 2024-12-27 14:40 | Outpatient (REF) | payer OTHER, SELFPAY ==
--- NOTE | ~2024-12-27 | US_ITS ---
EXAMINATION: US KIDNEY BILATERAL HISTORY: R10.A3 - Flank pain, bilateral TECHNIQUE: Real-time grayscale ultrasound imaging of the kidneys was performed and images were reviewed. COMPARISON: There are no prior studies available for comparison. FINDINGS: Right kidney: The right kidney measures 11.9 x 3.6 x 5.9 cm. Renal parenchymal echotexture and thickness are normal. There are no masses. There is mild fullness of an upper pole calyx, of uncertain significance. There is no hydronephrosis or renal calculi. Left Kidney: The left kidney measures 11.6 x 5.5 x 5.9 cm. Renal parenchymal echotexture and thickness are normal. There are no masses. There is no hydronephrosis or renal calculi. US/US renal BI IMPRESSION: Fullness of a right upper pole calyx, of uncertain significance. Otherwise unremarkable renal ultrasound. Electronically signed by: Keanu Camacho MD 12/27/2024 03:01 PM RUSTY
== END 2024-12-27 14:41 | disposition home or self-care (01) ==
LOC: HO.US 14:40
PROVIDERS: PCP Physician Assistant; Visit Provider Physician Assistant
DX: R10.A3 Flank pain, bilateral (principal); R39.9 Unspecified symptoms and signs involving the genitourinary system
CPT/HCPCS: 76775

== ENCOUNTER → 2024-12-27 14:42 | Outpatient (BNV) | payer OTHER, SELFPAY | PROVIDERS: PCP Physician Assistant; Visit Provider Radiology Diagnostic Radiology | DX: R10.A3 Flank pain, bilateral (principal) | CPT/HCPCS: 76775 ==

== ENCOUNTER 2025-02-12 09:44 | Outpatient (REF) | payer OTHER, SELFPAY ==
--- OUTSIDE RECORDS SUMMARY | 2025-02-12 09:46 | XMS_ITS | Encounter Summary ---
Author Organization [facility] Address [address] [place] [address] Phone Care Team Providers Care Power Cutting Machine Operator Name Role Phone Mili Padron MD Primary Care Provider Unava ilable Encounter Details Date Type Department Care Team (Late st Contact Info) Description 08/22/2011 Documentation [facility] [place] [address] [place], [place] [phone] Family Medicine, Physician [address] [place] [address] Social History Tobacco Use Types Packs/Day Years [...] on filedocumented in this encounter Care Teams Power Cutting Machine Operator Relationship Specialty Start Date End Date Mili Padron MD PCP - General 10/04/16 03/13/23 documented as of this encounter
--- OUTSIDE RECORDS SUMMARY | 2025-02-12 09:46 | XMS_ITS | Encounter Summary ---
Author Organization [facility] Address [address] [place] [address] Phone Care Team Providers Care Soaking Room Operator Name Role Phone Mili Padron MD Primary Care Provider Unava ilable Encounter Details Date Type Department Care Team (Late st Contact Info) Description 02/23/2014 Documentation [facility] [place] [address] [place], [place] [phone] Family Medicine, Physician [address] [place] [address] Social History Tobacco Use Types Packs/Day Years [...] on filedocumented in this encounter Care Teams Soaking Room Operator Relationship Specialty Start Date End Date Mili Padron MD PCP - General 10/04/16 03/13/23 documented as of this encounter
--- OUTSIDE RECORDS SUMMARY | 2025-02-12 09:46 | XMS_ITS | Encounter Summary ---
Author Organization [facility] Address [address] [place] [address] Phone Care Team Providers Care Llama Farmer Name Role Phone Mili Padron MD Primary Care Provider Unava ilable Encounter Details Date Type Department Care Team (Late st Contact Info) Description 11/29/2009 Documentation [facility] [place] [address] [place], [place] [phone] Family Medicine, Physician [address] [place] [address] Social History Tobacco Use Types Packs/Day Years [...] on filedocumented in this encounter Care Teams Llama Farmer Relationship Specialty Start Date End Date Mili Padron MD PCP - General 10/04/16 03/13/23 documented as of this encounter
--- OUTSIDE RECORDS SUMMARY | 2025-02-12 09:46 | XMS_ITS | Encounter Summary ---
Author Organization [facility] Address [address] [place] [address] Phone Care Team Providers Care Research Interviewer Name Role Phone Mili Padron MD Primary Care Provider Unava ilable Encounter Details Date Type Department Care Team (Late st Contact Info) Description 05/26/2014 Documentation [facility] [place] [address] [place], [place] [phone] Family Medicine, Physician [address] [place] [address] Social History Tobacco Use Types Packs/Day Years [...] on filedocumented in this encounter Care Teams Research Interviewer Relationship Specialty Start Date End Date Mili Padron MD PCP - General 10/04/16 03/13/23 documented as of this encounter
--- OUTSIDE RECORDS SUMMARY | 2025-02-12 09:46 | XMS_ITS | Encounter Summary ---
Author Organization [facility] Address [address] [place] [address] Phone Care Team Providers Care Manipulator Operator Name Role Phone Mili Padron MD Primary Care Provider Unava ilable Encounter Details Date Type Department Care Team (Late st Contact Info) Description 12/07/2010 Documentation [facility] [place] [address] [place], [place] [phone] Family Medicine, Physician [address] [place] [address] Social History Tobacco Use Types Packs/Day Years [...] on filedocumented in this encounter Care Teams Manipulator Operator Relationship Specialty Start Date End Date Mili Padron MD PCP - General 10/04/16 03/13/23 documented as of this encounter
--- OUTSIDE RECORDS SUMMARY | 2025-02-12 09:46 | XMS_ITS | Encounter Summary ---
Author Organization [facility] Address [address] [place] [address] Phone Care Team Providers Care Graduate Student Name Role Phone Mili Padron MD Primary Care Provider Unava ilable Encounter Details Date Type Department Care Team (Late st Contact Info) Description 09/14/2013 Documentation [facility] [place] [address] [place], [place] [phone] Family Medicine, Physician [address] [place] [address] Social History Tobacco Use Types Packs/Day Years [...] on filedocumented in this encounter Care Teams Graduate Student Relationship Specialty Start Date End Date Mili Padron MD PCP - General 10/04/16 03/13/23 documented as of this encounter
--- OUTSIDE RECORDS SUMMARY | 2025-02-12 09:46 | XMS_ITS | Encounter Summary ---
Author Organization [facility] Address [address] [place] [address] Phone Care Team Providers Care Ash Handler Name Role Phone Mili Padron MD Primary Care Provider Unava ilable Encounter Details Date Type Department Care Team (Late st Contact Info) Description 12/07/2010 Documentation [facility] [place] Family Medicine [address] [place], [place] [phone] Family Medicine, Physician [address] [place] [address] Social History Tobacco Use Types Packs/Day Years [...] on filedocumented in this encounter Care Teams Ash Handler Relationship Specialty Start Date End Date Mili Padron MD PCP - General 10/04/16 03/13/23 documented as of this encounter
--- OUTSIDE RECORDS SUMMARY | 2025-02-12 09:46 | XMS_ITS | Encounter Summary ---
Author Organization [facility] Address [address] [place] [address] Phone Care Team Providers Care Tail Dogger Name Role Phone Mili Padron MD Primary Care Provider Unava ilable Encounter Details Date Type Department Care Team (Late st Contact Info) Description 07/12/2011 Documentation [facility] [place] [address] [place], [place] [phone] Family Medicine, Physician [address] [place] [address] Social History Tobacco Use Types Packs/Day Years [...] on filedocumented in this encounter Care Teams Tail Dogger Relationship Specialty Start Date End Date Mili Padron MD PCP - General 10/04/16 03/13/23 documented as of this encounter
--- OUTSIDE RECORDS SUMMARY | 2025-02-12 09:46 | XMS_ITS | Encounter Summary ---
Author Organization [facility] Address [address] [place] [address] Phone Care Team Providers Care Sound Mixer Name Role Phone Mili Padron MD Primary Care Provider Unava ilable Encounter Details Date Type Department Care Team (Late st Contact Info) Description 09/19/2014 Documentation [facility] [place] Family Medicine [address] [place] [address] Family Medicine, Physician [address] [place] [address] Social History Tobacco Use Types Packs/Day Years [...] on filedocumented in this encounter Care Teams Sound Mixer Relationship Specialty Start Date End Date Mili Padron MD PCP - General 10/04/16 03/13/23 documented as of this encounter
--- OUTSIDE RECORDS SUMMARY | 2025-02-12 09:46 | XMS_ITS | Encounter Summary ---
Author Organization [facility] Address [address] [place] [address] Phone Care Team Providers Care Newspaper Press Operator Apprentice Name Role Phone Mili Padron MD Primary Care Provider Unava ilable Encounter Details Date Type Department Care Team (Late st Contact Info) Description 10/10/2016 Conversion Encounter [facility] - [address] [address] Social History Tobacco Use Types Packs/Day Years [...] on filedocumented in this encounter Care Teams Newspaper Press Operator Apprentice Relationship Specialty Start Date End Date Mili Padron MD PCP - General 10/04/16 03/13/23 documented as of this encounter
--- OUTSIDE RECORDS SUMMARY | 2025-02-12 09:46 | XMS_ITS | Encounter Summary ---
Author Organization [facility] Address [address] [place] [address] Phone Care Team Providers Care Refuge Manager Name Role Phone Mili Padron MD Primary Care Provider Unava ilable Encounter Details Date Type Department Care Team (Late st Contact Info) Description 12/20/2013 Documentation [facility] [place] Family [place] [address] [place], [place] [phone] Family Medicine, Physician [address] [place] [address] Social History Tobacco Use Types Packs/Day Years [...] on filedocumented in this encounter Care Teams Refuge Manager Relationship Specialty Start Date End Date Mili Padron MD PCP - General 10/04/16 03/13/23 documented as of this encounter
--- OUTSIDE RECORDS SUMMARY | 2025-02-12 09:46 | XMS_ITS | Encounter Summary ---
Author Organization [facility] Address [address] [place] [address] Phone Care Team Providers Care Rollway Man Name Role Phone Mili Padron MD Primary Care Provider Unava ilable Encounter Details Date Type Department Care Team (Late st Contact Info) Description 09/14/2013 Documentation [facility] [place] [address] [place], [place] [phone] Family Medicine, Physician [address] [place] [address] Social History Tobacco Use Types Packs/Day Years [...] on filedocumented in this encounter Care Teams Rollway Man Relationship Specialty Start Date End Date Mili Padron MD PCP - General 10/04/16 03/13/23 documented as of this encounter
--- OUTSIDE RECORDS SUMMARY | 2025-02-12 09:46 | XMS_ITS | Encounter Summary ---
Author Organization [facility] Address [address] [place] [address] Phone Care Team Providers Care Assembler Plastic Boat Name Role Phone Mili Padron MD Primary Care Provider Unava ilable Encounter Details Date Type Department Care Team (Late st Contact Info) Description 09/19/2014 Documentation [facility] [place] [address] [place] [address] Family Medicine, Physician [address] [place] [address] Social History Tobacco Use Types Packs/Day Years [...] on filedocumented in this encounter Care Teams Assembler Plastic Boat Relationship Specialty Start Date End Date Mili Padron MD PCP - General 10/04/16 03/13/23 documented as of this encounter
--- OUTSIDE RECORDS SUMMARY | 2025-02-12 09:46 | XMS_ITS | Encounter Summary ---
Author Organization [facility] Address [address] [place] [address] Phone Care Team Providers Care Dining Service Worker Name Role Phone Mili Padron MD Primary Care Provider Unava ilable Encounter Details Date Type Department Care Team (Late st Contact Info) Description 12/20/2013 Documentation [facility] [place] [address] [place], [place] [phone] Family Medicine, Physician [address] [place] [address] Social History Tobacco Use Types Packs/Day Years [...] on filedocumented in this encounter Care Teams Dining Service Worker Relationship Specialty Start Date End Date Mili Padron MD PCP - General 10/04/16 03/13/23 documented as of this encounter
--- OUTSIDE RECORDS SUMMARY | 2025-02-12 09:46 | XMS_ITS | Encounter Summary ---
Author Organization [facility] Address [address] [place] [address] Phone Care Team Providers Care Consumer Affairs Director Name Role Phone Mili Padron MD Primary Care Provider Unava ilable Encounter Details Date Type Department Care Team (Late st Contact Info) Description 09/19/2014 Documentation [facility] [place] [address] [place] [address] Family Medicine, Physician [address] [place] [address] Social History Tobacco Use Types Packs/Day Years [...] on filedocumented in this encounter Care Teams Consumer Affairs Director Relationship Specialty Start Date End Date Mili Padron MD PCP - General 10/04/16 03/13/23 documented as of this encounter
--- OUTSIDE RECORDS SUMMARY | 2025-02-12 09:46 | XMS_ITS | Encounter Summary ---
Author Organization [facility] Address [address] [place] [address] Phone Care Team Providers Care Welfare Worker Name Role Phone Mili Padron MD Primary Care Provider Unava ilable Encounter Details Date Type Department Care Team (Late st Contact Info) Description 05/23/2014 Documentation [facility] [place] Family Medicine [address] [place], [place] [phone] Family Medicine, Physician [address] [place] [address] Social History Tobacco Use Types Packs/Day Years [...] on filedocumented in this encounter Care Teams Welfare Worker Relationship Specialty Start Date End Date Mili Padron MD PCP - General 10/04/16 03/13/23 documented as of this encounter
--- OUTSIDE RECORDS SUMMARY | 2025-02-12 09:46 | XMS_ITS | Encounter Summary ---
Author Organization [facility] Address [address] [place] [address] Phone Care Team Providers Care Program Development Manager Name Role Phone Mili Padron MD Primary Care Provider Unava ilable Encounter Details Date Type Department Care Team (Late st Contact Info) Description 05/23/2014 Documentation [facility] [place] Family Medicine [address] [place], [place] [phone] Family Medicine, Physician [address] [place] [address] Social History Tobacco Use Types Packs/Day Years [...] on filedocumented in this encounter Care Teams Program Development Manager Relationship Specialty Start Date End Date Mili Padron MD PCP - General 10/04/16 03/13/23 documented as of this encounter
--- OUTSIDE RECORDS SUMMARY | 2025-02-12 09:46 | XMS_ITS | Encounter Summary ---
Author Organization [facility] Address [address] [place] [address] Phone Care Team Providers Care Academic Affairs Assistant Name Role Phone Mili Padron MD Primary Care Provider Unava ilable Encounter Details Date Type Department Care Team (Late st Contact Info) Description 12/07/2010 Documentation [facility] [place] Family Medicine [address] [place], [place] [phone] Family Medicine, Physician [address] [place] [address] Social History Tobacco Use Types Packs/Day Years [...] on filedocumented in this encounter Care Teams Academic Affairs Assistant Relationship Specialty Start Date End Date Mili Padron MD PCP - General 10/04/16 03/13/23 documented as of this encounter
--- OUTSIDE RECORDS SUMMARY | 2025-02-12 09:47 | XMS_ITS | Encounter Summary ---
Author Organization [facility] Address [address] [place] [address] Phone Care Team Providers Care Database Management System Specialist Name Role Phone Mili Padron MD Primary Care Provider Unava ilable Encounter Details Date Type Department Care Team (Late st Contact Info) Description 09/14/2013 Documentation [facility] [place] [address] [place], [place] [phone] Family Medicine, Physician [address] [place] [address] Social History Tobacco Use Types Packs/Day Years [...] on filedocumented in this encounter Care Teams Database Management System Specialist Relationship Specialty Start Date End Date Mili Padron MD PCP - General 10/04/16 03/13/23 documented as of this encounter
--- OUTSIDE RECORDS SUMMARY | 2025-02-12 09:47 | XMS_ITS | Clinical Summary ---
Author Organization [facility] Address [address] [phone] Phone Care Team Providers Care Ladle Cleaner Name Role Phone Cristopher Esteban MD Primary Care Provider Allergies No known active allergies Medications No known medications Social History Tobacco Use Types Packs/Day Years [...] this topic Medical Devices Not on file Insurance [address] [place], [place] [address] [place], [place] [address] [place], [place] [address] Care Teams Ladle Cleaner Relationship Specialty Start Date End Date Cristopher Esteban MD [address] [place] [address] [address] [place] [address] PCP - General Internal Medicine 01/15/23 Additional Source Comments The information contained in this document represents components of the legal health record. It is not the complete legal health record.[facility]
--- OUTSIDE RECORDS SUMMARY | 2025-02-12 09:47 | XMS_ITS | Encounter Summary ---
Author Organization [facility] Address [address] [place] [address] Phone Care Team Providers Care Presetter Operator Name Role Phone Mili Padron MD Primary Care Provider Unava ilable Encounter Details Date Type Department Care Team (Late st Contact Info) Description 12/10/2011 Documentation [facility] [place] [address] [place], [place] [phone] Family Medicine, Physician [address] [place] [address] Social History Tobacco Use Types Packs/Day Years [...] on filedocumented in this encounter Care Teams Presetter Operator Relationship Specialty Start Date End Date Mili Padron MD PCP - General 10/04/16 03/13/23 documented as of this encounter
--- OUTSIDE RECORDS SUMMARY | 2025-02-12 09:47 | XMS_ITS | Clinical Summary ---
Author Organization [facility] Address [address] [place] [address] Phone Care Team Providers Care Critical Care Unit Nurse Name Role Phone Unavailable Primary Care Provider [...]
--- OUTSIDE RECORDS SUMMARY | 2025-02-12 09:47 | XMS_ITS | Encounter Summary ---
Author Organization [facility] Address [address] [place] [address] Phone Care Team Providers Care Adult Care Manager Name Role Phone Mili Padron MD Primary Care Provider Unava ilable Encounter Details Date Type Department Care Team (Late st Contact Info) Description 09/10/2012 Documentation [facility] [place] Family Medicine [address] [place], [place] [phone] Family Medicine, Physician [address] [place] [address] Social History Tobacco Use Types Packs/Day Years [...] filedocumented in this encounter Care Teams Adult Care Manager Relationship Specialty Start Date End Date Mili Padron MD PCP - General 10/04/16 03/13/23 documented as of this encounter
--- OUTSIDE RECORDS SUMMARY | 2025-02-12 09:47 | XMS_ITS | Encounter Summary ---
Author Organization [facility] Address [address] [place] [address] Phone Care Team Providers Care Warp Placer Name Role Phone Mili Padron MD Primary Care Provider Unava ilable Encounter Details Date Type Department Care Team (Late st Contact Info) Description 12/09/2012 Documentation [facility] [place] [address] [place], [place] [phone] Family Medicine, Physician [address] [place] [address] Social History Tobacco Use Types Packs/Day Years [...] on filedocumented in this encounter Care Teams Warp Placer Relationship Specialty Start Date End Date Mili Padron MD PCP - General 10/04/16 03/13/23 documented as of this encounter
--- OUTSIDE RECORDS SUMMARY | 2025-02-12 09:47 | XMS_ITS | Encounter Summary ---
Author Organization [facility] Address [address] [place] [address] Phone Care Team Providers Care Tools Programmer Name Role Phone Mili Padron MD Primary Care Provider Unava ilable Encounter Details Date Type Department Care Team (Late st Contact Info) Description 12/09/2012 Documentation [facility] [place] [address] [place], [place] [phone] Family Medicine, Physician [address] [place] [address] Social History Tobacco Use Types Packs/Day Years [...] on filedocumented in this encounter Care Teams Tools Programmer Relationship Specialty Start Date End Date Mili Padron MD PCP - General 10/04/16 03/13/23 documented as of this encounter
--- OUTSIDE RECORDS SUMMARY | 2025-02-12 09:47 | XMS_ITS | Encounter Summary ---
Author Organization [facility] Address [address] [place] [address] Phone Care Team Providers Care Commercial Service Technician Name Role Phone Mili Padron MD Primary Care Provider Unava ilable Encounter Details Date Type Department Care Team (Late st Contact Info) Description 04/09/2012 Documentation [facility] [place] Family Medicine [address] [place] [address] Family Medicine, Physician [address] [place] [address] Social History Tobacco Use Types Packs/Day Years [...] filedocumented in this encounter Care Teams Commercial Service Technician Relationship Specialty Start Date End Date Mili Padron MD PCP - General 10/04/16 03/13/23 documented as of this encounter
--- OUTSIDE RECORDS SUMMARY | 2025-02-12 09:47 | XMS_ITS | Encounter Summary ---
Author Organization [facility] Address [address] [place] [address] Phone Care Team Providers Care Emergency Communications Dispatcher Name Role Phone Mili Padron MD Primary Care Provider Unava ilable Encounter Details Date Type Department Care Team (Late st Contact Info) Description 05/16/2009 Documentation [facility] [place] Family Medicine [address] [place], [place] [phone] Family Medicine, Physician [address] [place] [address] Social History Tobacco Use Types Packs/Day Years [...] on filedocumented in this encounter Care Teams Emergency Communications Dispatcher Relationship Specialty Start Date End Date Mili Padron MD PCP - General 10/04/16 03/13/23 documented as of this encounter
--- OUTSIDE RECORDS SUMMARY | 2025-02-12 09:47 | XMS_ITS | Encounter Summary ---
Author Organization [facility] Address [address] [place] [address] Phone Care Team Providers Care Order Expediter Name Role Phone Mili Padron MD Primary Care Provider Unava ilable Encounter Details Date Type Department Care Team (Late st Contact Info) Description 09/10/2012 Documentation [facility] [place] Family Medicine [address] [place], [place] [phone] Family Medicine, Physician [address] [place] [address] Social History Tobacco Use Types Packs/Day Years [...] on filedocumented in this encounter Care Teams Order Expediter Relationship Specialty Start Date End Date Mili Padron MD PCP - General 10/04/16 03/13/23 documented as of this encounter
--- OUTSIDE RECORDS SUMMARY | 2025-02-12 09:47 | XMS_ITS | Encounter Summary ---
Author Organization [facility] Address [address] [place] [address] Phone Care Team Providers Care Senior Qa Tester Name Role Phone Mili Padron MD Primary Care Provider Unava ilable Encounter Details Date Type Department Care Team (Late st Contact Info) Description 08/22/2011 Documentation [facility] [place] Family Medicine [address] [place], [place] [phone] Family Medicine, Physician [address] [place] [address] Social History Tobacco Use Types Packs/Day Years [...] on filedocumented in this encounter Care Teams Senior Qa Tester Relationship Specialty Start Date End Date Mili Padron MD PCP - General 10/04/16 03/13/23 documented as of this encounter
--- OUTSIDE RECORDS SUMMARY | 2025-02-12 09:47 | XMS_ITS | Encounter Summary ---
Author Organization [facility] Address [address] [place] [address] Phone Care Team Providers Care Machine Packager Name Role Phone Mili Padron MD Primary Care Provider Unava ilable Encounter Details Date Type Department Care Team (Late st Contact Info) Description 09/10/2012 Documentation [facility] [place] [address] [place], [place] [phone] Family Medicine, Physician [address] [place] [address] Social History Tobacco Use Types Packs/Day Years [...] on filedocumented in this encounter Care Teams Machine Packager Relationship Specialty Start Date End Date Mili Padron MD PCP - General 10/04/16 03/13/23 documented as of this encounter
--- OUTSIDE RECORDS SUMMARY | 2025-02-12 09:47 | XMS_ITS | Encounter Summary ---
Author Organization [facility] Address [address] [place] [address] Phone Care Team Providers Care Communications Editor Name Role Phone Mili Padron MD Primary Care Provider Unava ilable Encounter Details Date Type Department Care Team (Late st Contact Info) Description 12/09/2012 Documentation [facility] [place] [address] [place], [place] [phone] Family Medicine, Physician [address] [place] [address] Social History Tobacco Use Types Packs/Day Years [...] on filedocumented in this encounter Care Teams Communications Editor Relationship Specialty Start Date End Date Mili Padron MD PCP - General 10/04/16 03/13/23 documented as of this encounter
--- OUTSIDE RECORDS SUMMARY | 2025-02-12 09:47 | XMS_ITS | Encounter Summary ---
Author Organization [facility] Address [address] [place] [address] Phone Care Team Providers Care Electric Sealing Machine Operator Name Role Phone Mili Padron MD Primary Care Provider Unava ilable Encounter Details Date Type Department Care Team (Late st Contact Info) Description 08/22/2011 Documentation [facility] [place] [address] [place], [place] [phone] Family Medicine, Physician [address] [place] [address] Social History Tobacco Use Types Packs/Day Years [...] on filedocumented in this encounter Care Teams Electric Sealing Machine Operator Relationship Specialty Start Date End Date Mili Padron MD PCP - General 10/04/16 03/13/23 documented as of this encounter
[2025-02-12 09:57] LABS: MANUAL DIFF FLAG NO
[2025-02-12 10:59] LABS: Hematocrit 38.3 % (42.0-52.0); Hemoglobin 13.3 g/dl (14.0-18.0); Imm Gran Abs Auto 0.03 X10*3/uL (0.00-0.03); Imm Gran Pct Auto 0.7 % (0.0-0.4); Lymphocytes Absolute Auto 1.1 X10*3/uL (1.2-4.9); Mean Corpuscular HGB Conc 34.7 g/dl (31.0-36.0); Mean Corpuscular Hemoglobin 32.7 pg (27.0-33.0); Mean Corpuscular Volume 94.1 fL (80.0-98.0); NRBC Abs Auto 0.000 X10*3/uL (0.0-0.012); NRBC Pct Auto 0.0 /100WBC (0.0-0.2); Platelet Count 256 X10*3/uL (160-400); Red Blood Count 4.07 X10*6/uL (4.60-5.80); White Blood Count 4.3 X10*3/uL (4.8-10.8)
[2025-02-12 11:21] LABS: Appearance Urine Clear; Glucose Urine UA Negative (Negative); PH 6.5 (5.0-9.0); Specific Gravity - Urine 1.010 (1.005-1.025)
[2025-02-12 11:29] LABS: Iron 178 mcg/dL (45-160); Percent Iron Saturation 71 % (15-50); Total Iron Binding Capacity 252 mcg/dL (228-428); Unsaturated Iron Binding 74 ug/dL
[2025-02-12 11:46] LABS: Ferritin 236 ng/mL (20-250)
[2025-02-12 11:52] LABS: Folate 9.4 ng/mL (> or = 4.0); Vitamin B12 341 pg/mL (200-900)
== END 2025-02-12 09:45 | disposition home or self-care (01) ==
LOC: HO.LAB 09:44
PROVIDERS: PCP Physician Assistant; Visit Provider Physician Assistant
DX: R79.89 Other specified abnormal findings of blood chemistry (principal); R30.0 Dysuria
CPT/HCPCS: 36415; 81003; 82607; 82728; 82746; 83540; 85025

== ENCOUNTER 2025-02-23 09:36 | Outpatient (REF) | payer OTHER, SELFPAY ==
[2025-02-23 16:18] LABS: MANUAL DIFF FLAG NO
[2025-02-23 16:48] LABS: Hematocrit 42.2 % (42.0-52.0); Hemoglobin 14.3 g/dl (14.0-18.0); Imm Gran Abs Auto 0.02 X10*3/uL (0.00-0.03); Imm Gran Pct Auto 0.4 % (0.0-0.4); Lymphocytes Absolute Auto 0.9 X10*3/uL (1.2-4.9); Mean Corpuscular HGB Conc 33.9 g/dl (31.0-36.0); Mean Corpuscular Hemoglobin 32.6 pg (27.0-33.0); Mean Corpuscular Volume 96.1 fL (80.0-98.0); NRBC Abs Auto 0.000 X10*3/uL (0.0-0.012); NRBC Pct Auto 0.0 /100WBC (0.0-0.2); Platelet Count 302 X10*3/uL (160-400); Red Blood Count 4.39 X10*6/uL (4.60-5.80); White Blood Count 4.5 X10*3/uL (4.8-10.8)
[2025-02-23 17:36] LABS: Alanine Aminotransferase 21 U/L (0-40); Albumin Level 5.2 g/dL (3.5-5.0); Alkaline Phosphatase 51 U/L (39-117); Anion Gap 14 (12-20); Aspartate Amino Transferase 24 U/L (5-37); Blood Urea Nitrogen 15 mg/dL (9-16); Calcium 10.0 mg/dL (8.4-10.2); Carbon Dioxide 28 mmol/L (22-29); Chloride 106 mmol/L (96-108); Estimated Glomerular Filt Rate > 60; Iron 145 mcg/dL (45-160); Percent Iron Saturation 59 % (15-50); Potassium 4.6 mmol/L (3.3-5.1); Sodium 143 mmol/L (135-145); Total Iron Binding Capacity 245 mcg/dL (228-428); Total Protein 7.9 g/dL (6.5-8.0); Unsaturated Iron Binding 100 ug/dL
[2025-02-23 17:54] LABS: Ferritin 226 ng/mL (20-250)
[2025-02-23 18:00] LABS: Folate 8.6 ng/mL (> or = 4.0); Vitamin B12 343 pg/mL (200-900)
[2025-02-24 00:58] LABS: CT PCR Urine NOT DETECTED (Not Detect.); NG PCR Urine NOT DETECTED (Not Detect.)
[2025-02-24 05:30] LABS: HIV Num 1 0.20 S/CO (0.00-0.99); ~HepC Num1 0.09 S/CO (0.00-0.79); ~Hepatitis C Antibody Nonreactive (Nonreactive)
[2025-02-24 05:35] LABS: Syphilis Screen Nonreactive (Nonreactive)
== END 2025-02-23 09:37 | disposition home or self-care (01) ==
LOC: HO.WFDLDS 09:36
PROVIDERS: PCP Physician Assistant; Visit Provider Physician Assistant
DX: Z11.4 Encounter for screening for human immunodeficiency virus [HIV] (principal); Z11.59 Encounter for screening for other viral diseases; Z01.84 Encounter for antibody response examination; E83.19 Other disorders of iron metabolism; R79.89 Other specified abnormal findings of blood chemistry; R30.0 Dysuria; R36.9 Urethral discharge, unspecified; Z20.2 Contact with and (suspected) exposure to infections with a predominantly sexual mode of transmission
CPT/HCPCS: 80053; 82607; 82728; 82746; 83540; 85025; 86780; 86803; 87389; 87491; 87591

== ENCOUNTER 2025-02-23 09:36 | Outpatient (AMB) | payer OTHER, SELFPAY ==
--- NOTE | 2025-02-23 09:41 | MHC.PC.OV ---
Vital Signs 02/23/25 09:54 BP 114/78 Blood Pressure Location Rt brachial Position Sitting Respiration 12 Pulse 75 Pulse Source Pulse Oximeter Temp 98.1 F Temp Source Oral Pulse Oximetry (%) 97 Oxygen Delivery Method Room Air Intake Visit Reasons: urinary symptoms Intake Note: Pain in penis and burning, intermittently throughout the day and while urinating. Retail Maintenance Technician Required: No Allergies No Known Allergies Allergy (Verified 02/23/25 09:51) Medication List - Last Reconciled 02/23/25 by Ursula Woodard PA-C No Known Home Meds Tobacco use date assessed: 02/23/25 Dental Screening Dental Screen Date: 12/02/24 HPI urinary symptoms HPI Details Patient is a 30-year-old male who presents today for an acute problem visit. He says about 2 weeks ago he noticed a bump on the shaft of his penis that then opened and drained and did not return. He states almost around that time he developed clear discharge from the tip of his penis. At the time that he develops symptoms he did have some UTI symptoms associated with it but only for a few days and that resolved. He is not sure if it is related. The bump did start after he went running. He has not been sexually active in 2 months and had negative STD [facility] about 1 month ago. He has noted intermittent testicular discomfort. No masses. No increased urinary frequency and urgency. No malodorous urine. No fever or chills. No nausea, vomiting. He did have labs recently which showed elevated iron. He states that his father does have hemochromatosis. [facility] teeth extracted Family History Mother Diabetes Maternal Grandmother Diabetes Father Skin cancer Social History Housing: House Alcohol intake: current Alcohol intake frequency: holidays/special occasions only Alcohol type: beer Patient Tobacco Use Status: Never used Tobacco e-Cigarette/Vaping Use: Never Used Second Hand Smoke Exposure: No service: No Current occupational status: employed Current occupation: [employer] Current occupational exposures/hazards: No Cognitive needs: No Hearing needs: No Vision needs: No Questionnaire Thrive Questionnaire Date Thrive assessed: 11/29/24 I am a: Patient What is your living situation today?: I have a steady place to live Within the past 12 months, did the food you bought not last and you didn't have the money to get more?: Never true Within the past 12 months, did you worry whether your food would run out before you got money to buy more?: Never true Do you have trouble paying for medicines?: No Do you have trouble getting transportation to medical appointments?: No Do you have trouble paying your heating and electricity bill?: No Do you have trouble taking care of your child, family member or friend?: No Do you have trouble with day-to-day activities such as bathing, preparing meals, shopping, managing finances, etc.?: No Are you currently unemployed and looking for a job?: No Are you interested in more education?: No Currently or been in a relationship where the following occur: No concerns reported THRIVE Score: 0 ANDREA-7 AMB Questionnaire ANDREA-7 Date ANDREA - 7 assessed: 06/11/23 Source: Developed by Drs. Keanu Marquez, Shefali Beck, Josiah Montana and colleagues, with an educational reynaldo from [employer]. Physical exam (Primary Care) Vital Signs: Last Vital Signs Temp 98.1 F 02/23/25 09:54 Pulse 75 02/23/25 09:54 Resp 12 02/23/25 09:54 BP 114/78 02/23/25 09:54 Pulse Ox 97 02/23/25 09:54 Oxygen Delivery Method Room Air 02/23/25 09:54 Tobacco/Smoking Status: Tobacco use Status Tobacco use date assessed 02/23/25 02/23/25 09:53 Patient Tobacco Use Status Never used Tobacco 02/23/25 09:44 e-Cigarette/Vaping Use Never Used 02/23/25 09:44 Thrive Assessment: Date of Thrive Assessment Date Thrive assessed 11/29/24 02/23/25 09:44 Currently or been in a relationship where the following occur: No concerns reported Const Orientation/consciousness: patient oriented x3 HENMT Ears: hearing grossly normal bilaterally Neck Thyroid: Thyroid normal Lymphatic: no lymphadenopathy noted Resp Auscultation: clear to auscultation bilaterally Cardio Rate: regular rate Rhythm: regular rhythm Heart sounds: S1 normal heart sound present and S2 normal heart sound present GI Inspection: Yes normal to inspection Palpation (GI): Soft to palpation and Other GI palpation findings present (nontender, no cva tenderness) Auscultation: normoactive bowel sounds Rectal Exam - Male: Yes deferred Penis: normal penis and circumcised Meatus: meatal discharge (Clear) Scrotum: scrotum normal Testes: Testes normal Skin General skin exam: no rashes or lesions noted Neuro General: patient oriented x3, gait normal and no focal motor deficits Coding Level of Care Code Est Pt Level 4 (43250) Add On Problem Visit Only Diagnoses Abnormal CBC R79.89 Penile discharge R36.9 Iron excess E83.19 Testicular discomfort N50.819 Assessment & Plan Assessment & Plan (1) Abnormal CBC: Code(s): R79.89 - Other specified abnormal findings of blood chemistry Category: Medical Plan: We will repeat this and testing for hemochromatosis (2) Penile discharge: Code(s): R36.9 - Urethral discharge, unspecified Category: Medical Plan: UA today in office is negative. Urine culture ordered. We will check for chlamydia and gonorrhea. Additional STD testing ordered including HIV, syphilis, hepatitis. (3) Iron excess: Code(s): E83.19 - Other disorders of iron metabolism Category: Medical Plan: Not on any supplements (4) Testicular discomfort: Code(s): N50.819 - Testicular pain, unspecified Category: Medical Plan: Labs and ultrasound ordered. We will follow up pending test results. Orders: Orders Complete Blood Count Auto Diff 02/23/25 E83.19 - Other disorders of iron metabolism, R36.9 - Urethral discharge, unspecified, R79.89 - Other specified abnormal findings of blood chemistry IRON PROFILE 02/23/25 E83.19 - Other disorders of iron metabolism, R36.9 - Urethral discharge, unspecified, R79.89 - Other specified abnormal findings of blood chemistry Hepatitis C Antibody 02/23/25 E83.19 - Other disorders of iron metabolism, R36.9 - Urethral discharge, unspecified, R79.89 - Other specified abnormal findings of blood chemistry, Z20.2 - Contact with and (suspected) exposure to infections with a predominantly sexual mode of transmission HIV Ab/Ag 02/23/25 E83.19 - Other disorders of iron metabolism, R36.9 - Urethral discharge, unspecified, R79.89 - Other specified abnormal findings of blood chemistry, Z20.2 - Contact with and (suspected) exposure to infections with a predominantly sexual mode of transmission Syphilis Screen 02/23/25 E83.19 - Other disorders of iron metabolism, R36.9 - Urethral discharge, unspecified, R79.89 - Other specified abnormal findings of blood chemistry, Z20.2 - Contact with and (suspected) exposure to infections with a predominantly sexual mode of transmission CT NG by PCR Urine 02/23/25 E83.19 - Other disorders of iron metabolism, R30.0 - Dysuria, R36.9 - Urethral discharge, unspecified, R79.89 - Other specified abnormal findings of blood chemistry DNA Analysis Hemochromatosis 02/23/25 E83.19 - Other disorders of iron metabolism, R36.9 - Urethral discharge, unspecified, R79.89 - Other specified abnormal findings of blood chemistry Ferritin 02/23/25 E83.19 - Other disorders of iron metabolism, R36.9 - Urethral discharge, unspecified, R79.89 - Other specified abnormal findings of blood chemistry Vitamin B12 and Folate 02/23/25 E83.19 - Other disorders of iron metabolism, R36.9 - Urethral discharge, unspecified, R79.89 - Other specified abnormal findings of blood chemistry Comprehensive Met. Panel 02/23/25 E83.19 - Other disorders of iron metabolism, R36.9 - Urethral discharge, unspecified, R79.89 - Other specified abnormal findings of blood chemistry Referrals Urology Referral N50.819 - Testicular pain, unspecified, R36.9 - Urethral discharge, unspecified, R39.9 - Unspecified symptoms and signs involving the genitourinary system
[2025-02-23 09:54] VITALS: BP 114/78; PULSE 75; RESP 12; TEMP 36.7; O2SAT 97
--- OUTSIDE RECORDS SUMMARY | 2025-02-23 10:06 | XMS_ITS | Encounter Summary ---
Author Organization [facility] Address [address] [place] [address] Phone Care Team Providers Care Community Organization Aide Name Role Phone Mili Padron MD Primary Care Provider Unava ilable Encounter Details Date Type Department Care Team (Late st Contact Info) Description 09/19/2014 Documentation [facility] [place] [address] [place] [address] Family Medicine, Physician [address] [place] [address] Social History Tobacco Use Types Packs/Day Years [...] on filedocumented in this encounter Care Teams Community Organization Aide Relationship Specialty Start Date End Date Mili Padron MD PCP - General 10/04/16 03/13/23 documented as of this encounter
--- OUTSIDE RECORDS SUMMARY | 2025-02-23 10:06 | XMS_ITS | Encounter Summary ---
Author Organization [facility] Address [address] [place] [address] Phone Care Team Providers Care Shoe Folder Name Role Phone Mili Padron MD Primary Care Provider Unava ilable Encounter Details Date Type Department Care Team (Late st Contact Info) Description 12/07/2010 Documentation [facility] [place] Family Medicine [address] [place], [place] [phone] Family Medicine, Physician [address] [place] [address] Social History Tobacco Use Types Packs/Day Years [...] on filedocumented in this encounter Care Teams Shoe Folder Relationship Specialty Start Date End Date Mili Padron MD PCP - General 10/04/16 03/13/23 documented as of this encounter
--- OUTSIDE RECORDS SUMMARY | 2025-02-23 10:06 | XMS_ITS | Encounter Summary ---
Author Organization [facility] Address [address] [place] [address] Phone Care Team Providers Care Sales Analytics Manager Name Role Phone Mili Padron MD Primary Care Provider Unava ilable Encounter Details Date Type Department Care Team (Late st Contact Info) Description 09/19/2014 Documentation [facility] [place] Family Medicine [address] [place] [address] Family Medicine, Physician [address] [place] [address] Social History Tobacco Use Types Packs/Day Years [...] on filedocumented in this encounter Care Teams Sales Analytics Manager Relationship Specialty Start Date End Date Mili Padron MD PCP - General 10/04/16 03/13/23 documented as of this encounter
--- OUTSIDE RECORDS SUMMARY | 2025-02-23 10:06 | XMS_ITS | Encounter Summary ---
Author Organization [facility] Address [address] [place] [address] Phone Care Team Providers Care Pickling Machine Operator Name Role Phone Mili Padron MD Primary Care Provider Unava ilable Encounter Details Date Type Department Care Team (Late st Contact Info) Description 05/16/2009 Documentation [facility] [place] [address] [place], [place] [phone] Family Medicine, Physician [address] [place] [address] Social History Tobacco Use Types Packs/Day Years [...] on filedocumented in this encounter Care Teams Pickling Machine Operator Relationship Specialty Start Date End Date Mili Padron MD PCP - General 10/04/16 03/13/23 documented as of this encounter
--- OUTSIDE RECORDS SUMMARY | 2025-02-23 10:06 | XMS_ITS | Encounter Summary ---
Author Organization [facility] Address [address] [place] [address] Phone Care Team Providers Care Automatic Vulcanizing Lead Operator Name Role Phone Mili Padron MD Primary Care Provider Unava ilable Encounter Details Date Type Department Care Team (Late st Contact Info) Description 08/22/2011 Documentation [facility] [place] [address] [place], [place] [phone] Family Medicine, Physician [address] [place] [address] Social History Tobacco Use Types Packs/Day Years [...] on filedocumented in this encounter Care Teams Automatic Vulcanizing Lead Operator Relationship Specialty Start Date End Date Mili Padron MD PCP - General 10/04/16 03/13/23 documented as of this encounter
--- OUTSIDE RECORDS SUMMARY | 2025-02-23 10:06 | XMS_ITS | Encounter Summary ---
Author Organization [facility] Address [address] [place] [address] Phone Care Team Providers Care Cloth Measurer Machine Name Role Phone Mili Padron MD Primary Care Provider Unava ilable Encounter Details Date Type Department Care Team (Late st Contact Info) Description 09/10/2012 Documentation [facility] [place] [address] [place], [place] [phone] Family Medicine, Physician [address] [place] [address] Social History Tobacco Use Types Packs/Day Years [...] on filedocumented in this encounter Care Teams Cloth Measurer Machine Relationship Specialty Start Date End Date Mili Padron MD PCP - General 10/04/16 03/13/23 documented as of this encounter
--- OUTSIDE RECORDS SUMMARY | 2025-02-23 10:06 | XMS_ITS | Encounter Summary ---
Author Organization [facility] Address [address] [place] [address] Phone Care Team Providers Care Preservationist Name Role Phone Mili Padron MD Primary Care Provider Unava ilable Encounter Details Date Type Department Care Team (Late st Contact Info) Description 08/22/2011 Documentation [facility] [place] Family Medicine [address] [place], [place] [phone] Family Medicine, Physician [address] [place] [address] Social History Tobacco Use Types Packs/Day Years [...] on filedocumented in this encounter Care Teams Preservationist Relationship Specialty Start Date End Date Mili Padron MD PCP - General 10/04/16 03/13/23 documented as of this encounter
--- OUTSIDE RECORDS SUMMARY | 2025-02-23 10:06 | XMS_ITS | Encounter Summary ---
Author Organization [facility] Address [address] [place] [address] Phone Care Team Providers Care Labor Standards Director Name Role Phone Mili Padron MD Primary Care Provider Unava ilable Encounter Details Date Type Department Care Team (Late st Contact Info) Description 11/29/2009 Documentation [facility] [place] Family Medicine [address] [place], [place] [phone] Family Medicine, Physician [address] [place] [address] Social History Tobacco Use Types Packs/Day Years [...] on filedocumented in this encounter Care Teams Labor Standards Director Relationship Specialty Start Date End Date Mili Padron MD PCP - General 10/04/16 03/13/23 documented as of this encounter
--- OUTSIDE RECORDS SUMMARY | 2025-02-23 10:06 | XMS_ITS | Encounter Summary ---
Author Organization [facility] Address [address] [place] [address] Phone Care Team Providers Care Matchbook Assembler Name Role Phone Mili Padron MD Primary Care Provider Unava ilable Encounter Details Date Type Department Care Team (Late st Contact Info) Description 12/09/2012 Documentation [facility] [place] Family Medicine [address] [place], [place] [phone] Family Medicine, Physician [address] [place] [address] Social History Tobacco Use Types Packs/Day Years [...] on filedocumented in this encounter Care Teams Matchbook Assembler Relationship Specialty Start Date End Date Mili Padron MD PCP - General 10/04/16 03/13/23 documented as of this encounter
--- OUTSIDE RECORDS SUMMARY | 2025-02-23 10:06 | XMS_ITS | Encounter Summary ---
Author Organization [facility] Address [address] [place] [address] Phone Care Team Providers Care Dining Room Tables Set Up Attendant Name Role Phone Mili Padron MD Primary Care Provider Unava ilable Encounter Details Date Type Department Care Team (Late st Contact Info) Description 12/20/2013 Documentation [facility] [place] [address] [place], [place] [phone] Family Medicine, Physician [address] [place] [address] Social History Tobacco Use Types Packs/Day Years [...] filedocumented in this encounter Care Teams Dining Room Tables Set Up Attendant Relationship Specialty Start Date End Date Mili Padron MD PCP - General 10/04/16 03/13/23 documented as of this encounter
--- OUTSIDE RECORDS SUMMARY | 2025-02-23 10:06 | XMS_ITS | Clinical Summary ---
Author Organization [facility] Address [address] [place] [address] Phone Care Team Providers Care Excel Specialist Name Role Phone Unavailable Primary Care Provider [...]
--- OUTSIDE RECORDS SUMMARY | 2025-02-23 10:06 | XMS_ITS | Encounter Summary ---
Author Organization [facility] Address [address] [place] [address] Phone Care Team Providers Care Bar Steward Name Role Phone Mili Padron MD Primary Care Provider Unava ilable Encounter Details Date Type Department Care Team (Late st Contact Info) Description 09/14/2013 Documentation [facility] [place] [address] [place], [place] [phone] Family Medicine, Physician [address] [place] [address] Social History Tobacco Use Types Packs/Day Years [...] on filedocumented in this encounter Care Teams Bar Steward Relationship Specialty Start Date End Date Mili Padron MD PCP - General 10/04/16 03/13/23 documented as of this encounter
--- OUTSIDE RECORDS SUMMARY | 2025-02-23 10:06 | XMS_ITS | Clinical Summary ---
Author Organization [facility] Address [address] [phone] Phone Care Team Providers Care Diet Therapist Name Role Phone Cristopher Esteban MD Primary [...] Devices Not on file Insurance [address] [place], [place] [address] [place], [place] [address] [place], [place] [address]O Care Teams Diet Therapist Relationship Specialty Start Date End Date Cristopher Esteban MD [address] [place] [address] [address] [place] [address] PCP - General Internal Medicine 01/15/23 Additional Source Comments The information contained in this document represents components of the legal health record. It is not the complete legal health record.[facility]
--- OUTSIDE RECORDS SUMMARY | 2025-02-23 10:06 | XMS_ITS | Encounter Summary ---
Author Organization [facility] Address [address] [place] [address] Phone Care Team Providers Care 3D Animator Name Role Phone Mili Padron MD Primary Care Provider Unava ilable Encounter Details Date Type Department Care Team (Late st Contact Info) Description 09/14/[address] [facility] [place] Family Medicine [address] [place], [place] [phone] Family Medicine, Physician [address] [place] [address] Social History Tobacco Use Types Packs/Day Years [...] on filedocumented in this encounter Care Teams 3D Animator Relationship Specialty Start Date End Date Mili Padron MD PCP - General 10/04/16 03/13/23 documented as of this encounter
--- OUTSIDE RECORDS SUMMARY | 2025-02-23 10:06 | XMS_ITS | Encounter Summary ---
Author Organization [facility] Address [address] [place] [address] Phone Care Team Providers Care Drawer In Stitch Bonding Machine Name Role Phone Mili Padron MD Primary Care Provider Unava ilable Encounter Details Date Type Department Care Team (Late st Contact Info) Description 12/10/2011 [place]ation [facility] [place] [address] [place], [place] [phone] Family Medicine, Physician [address] [place] [address] Social History Tobacco Use Types Packs/Day Years [...] on filedocumented in this encounter Care Teams Drawer In Stitch Bonding Machine Relationship Specialty Start Date End Date Mili Padron MD PCP - General 10/04/16 03/13/23 documented as of this encounter
--- OUTSIDE RECORDS SUMMARY | 2025-02-23 10:06 | XMS_ITS | Encounter Summary ---
Author Organization [facility] Address [address] [place] [address] Phone Care Team Providers Care Chucking Machine Set Up Operator Tool Name Role Phone Mili Padron MD Primary Care Provider Unava ilable Encounter Details Date Type Department Care Team (Late st Contact Info) Description 09/10/2012 Documentation [facility] Family Medicine [address] [place], [place] [phone] Family Medicine, Physician [address] [place] [address] Social History Tobacco Use Types Packs/Day Years [...] on filedocumented in this encounter Care Teams Chucking Machine Set Up Operator Tool Relationship Specialty Start Date End Date Mili Padron MD PCP - General 10/04/16 03/13/23 documented as of this encounter
--- OUTSIDE RECORDS SUMMARY | 2025-02-23 10:06 | XMS_ITS | Encounter Summary ---
Author Organization [facility] Address [address] [place] [address] Phone Care Team Providers Care Operations Processor Name Role Phone Mili Padron MD Primary Care Provider Unava ilable Encounter Details Date Type Department Care Team (Late st Contact Info) Description 05/26/2014 Documentation [facility] [place] Family Medicine [address] [place], [place] [phone] Family Medicine, Physician [address] [place] [address] Social History Tobacco Use Types Packs/Day Years [...] on filedocumented in this encounter Care Teams Operations Processor Relationship Specialty Start Date End Date iMli Padron MD PCP - General 10/04/16 03/13/23 documented as of this encounter
--- OUTSIDE RECORDS SUMMARY | 2025-02-23 10:06 | XMS_ITS | Encounter Summary ---
Author Organization [facility] Address [address] [place] [address] Phone Care Team Providers Care Steam Hoist Operator Name Role Phone Mili Padron MD Primary Care Provider Unava ilable Encounter Details Date Type Department Care Team (Late st Contact Info) Description 09/19/2014 Documentation [facility] [place] Family Medicine [address] [place] [address] Family Medicine, Physician [address] [place] [address] Social History Tobacco Use Types Packs/Day Years [...] on filedocumented in this encounter Care Teams Steam Hoist Operator Relationship Specialty Start Date End Date Mili Padron MD PCP - General 10/04/16 03/13/23 documented as of this encounter
--- OUTSIDE RECORDS SUMMARY | 2025-02-23 10:06 | XMS_ITS | Encounter Summary ---
Author Organization [facility] Address [address] [place] [address] Phone Care Team Providers Care Agile Coach Name Role Phone Mili Padron MD Primary Care Provider Unava ilable Encounter Details Date Type Department Care Team (Late st Contact Info) Description 05/23/2014 Documentation [facility] [place] [address] [place], [place] [phone] Family Medicine, Physician [address] [place] [address] Social History Tobacco Use Types Packs/Day Years [...] on filedocumented in this encounter Care Teams Agile Coach Relationship Specialty Start Date End Date Mili Padron MD PCP - General 10/04/16 03/13/23 documented as of this encounter
--- OUTSIDE RECORDS SUMMARY | 2025-02-23 10:06 | XMS_ITS | Encounter Summary ---
Author Organization [facility] Address [address] [place] [address] Phone Care Team Providers Care Dehairer Name Role Phone Mili Padron MD Primary Care Provider Unava ilable Encounter Details Date Type Department Care Team (Late st Contact Info) Description 09/10/2012 Documentation [facility] [place] Family Medicine [address] [place], [place] [phone] Family Medicine, Physician [address] [place] [address] Social History Tobacco Use Types Packs/Day Years [...] on filedocumented in this encounter Care Teams Dehairer Relationship Specialty Start Date End Date Mili Padron MD PCP - General 10/04/16 03/13/23 documented as of this encounter
--- OUTSIDE RECORDS SUMMARY | 2025-02-23 10:06 | XMS_ITS | Encounter Summary ---
Author Organization [facility] Address [address] [place] [address] Phone Care Team Providers Care Salesperson Neckties Name Role Phone Mili Padron MD Primary Care Provider Unava ilable Encounter Details Date Type Department Care Team (Late st Contact Info) Description 12/07/2010 Documentation [facility] [place] [address] [place], [place] [phone] Family Medicine, Physician [address] [place] [address] Social History Tobacco Use Types Packs/Day Years [...] on filedocumented in this encounter Care Teams Salesperson Neckties Relationship Specialty Start Date End Date Mili Padron MD PCP - General 10/04/16 03/13/23 documented as of this encounter
--- OUTSIDE RECORDS SUMMARY | 2025-02-23 10:06 | XMS_ITS | Encounter Summary ---
Author Organization [facility] Address [address] [place] [address] Phone Care Team Providers Care Certified Orthoptist Name Role Phone Mili Padron MD Primary Care Provider Unava ilable Encounter Details Date Type Department Care Team (Late st Contact Info) Description 10/10/2016 Conversion Encounter [facility] - [address] [address] Social History Tobacco Use Types Packs/Day Years [...] on filedocumented in this encounter Care Teams Certified Orthoptist Relationship Specialty Start Date End Date Mili Padron MD PCP - General 10/04/16 03/13/23 documented as of this encounter
--- OUTSIDE RECORDS SUMMARY | 2025-02-23 10:06 | XMS_ITS | Encounter Summary ---
Author Organization [facility] Address [address] [place] [address] Phone Care Team Providers Care Adult Ministries Director Name Role Phone Mili Padron MD Primary Care Provider Unava ilable Encounter Details Date Type Department Care Team (Late st Contact Info) Description 12/20/2013 Documentation [facility] [place] Family Medicine [address] [place], [place] [phone] Family Medicine, Physician [address] [place] [address] Social History Tobacco Use Types Packs/Day Years [...] filedocumented in this encounter Care Teams Adult Ministries Director Relationship Specialty Start Date End Date Mili Padron MD PCP - General 10/04/16 03/13/23 documented as of this encounter
--- OUTSIDE RECORDS SUMMARY | 2025-02-23 10:06 | XMS_ITS | Encounter Summary ---
Author Organization [facility] Address [address] [place] [address] Phone Care Team Providers Care Director Check Name Role Phone Mili Padron MD Primary Care Provider Unava ilable Encounter Details Date Type Department Care Team (Late st Contact Info) Description 04/09/2012 Documentation [facility] [place] Family Medicine [address] [place], [place] [phone] Family Medicine, Physician [address] [place] [address] Social History Tobacco Use Types Packs/Day Years [...] filedocumented in this encounter Care Teams Director Check Relationship Specialty Start Date End Date Mili Padron MD PCP - General 10/04/16 03/13/23 documented as of this encounter
--- OUTSIDE RECORDS SUMMARY | 2025-02-23 10:06 | XMS_ITS | Encounter Summary ---
Author Organization [facility] Address [address] [place] [address] Phone Care Team Providers Care Form Worker Name Role Phone Mili Padron MD Primary Care Provider Unava ilable Encounter Details Date Type Department Care Team (Late st Contact Info) Description 12/09/2012 Documentation [facility] [place] Family Medicine [address] [place], [place] [phone] Family Medicine, Physician [address] [place] [address] Social History Tobacco Use Types Packs/Day Years [...] on filedocumented in this encounter Care Teams Form Worker Relationship Specialty Start Date End Date Mili Padron MD PCP - General 10/04/16 03/13/23 documented as of this encounter
--- OUTSIDE RECORDS SUMMARY | 2025-02-23 10:06 | XMS_ITS | Encounter Summary ---
Author Organization [facility] Address [address] [place] [address] Phone Care Team Providers Care Wallet Assembler Name Role Phone Mili Padron MD Primary Care Provider Unava ilable Encounter Details Date Type Department Care Team (Late st Contact Info) Description 02/23/2014 Documentation [facility] [place] Family [place] [address] [place], [place] [phone] Family Medicine, Physician [address] [place] [address] Social History Tobacco Use Types Packs/Day Years [...] on filedocumented in this encounter Care Teams Wallet Assembler Relationship Specialty Start Date End Date Mili Padron MD PCP - General 10/04/16 03/13/23 documented as of this encounter
--- OUTSIDE RECORDS SUMMARY | 2025-02-23 10:06 | XMS_ITS | Encounter Summary ---
Author Organization [facility] Address [address] [place] [address] Phone Care Team Providers Care Pharmacoepidemiologist Name Role Phone Mili Padron MD Primary Care Provider Unava ilable Encounter Details Date Type Department Care Team (Late st Contact Info) Description 07/12/2011 Documentation [facility] [place] [address] [place], [place] [phone] Family Medicine, Physician [address] [place] [address] Social History Tobacco Use Types Packs/Day Years [...] on filedocumented in this encounter Care Teams Pharmacoepidemiologist Relationship Specialty Start Date End Date Mili Padron MD PCP - General 10/04/16 03/13/23 documented as of this encounter
--- OUTSIDE RECORDS SUMMARY | 2025-02-23 10:06 | XMS_ITS | Encounter Summary ---
Author Organization [facility] Address [address] [place] [address] Phone Care Team Providers Care Ergonomics Technician Name Role Phone Mili Padron MD Primary Care Provider Unava ilable Encounter Details Date Type Department Care Team (Late st Contact Info) Description 12/07/2010 Documentation [facility] [place] Family Medicine [address] [place], [place] [phone] Family Medicine, Physician [address] [place] [address] Social History Tobacco Use Types Packs/Day Years [...] on filedocumented in this encounter Care Teams Ergonomics Technician Relationship Specialty Start Date End Date Mili Padron MD PCP - General 10/04/16 03/13/23 documented as of this encounter
--- OUTSIDE RECORDS SUMMARY | 2025-02-23 10:06 | XMS_ITS | Encounter Summary ---
Author Organization [facility] Address [address] [place] [address] Phone Care Team Providers Care Salesperson Meats Name Role Phone Mili Padron MD Primary Care Provider Unava ilable Encounter Details Date Type Department Care Team (Late st Contact Info) Description 09/14/2013 Documentation [facility] [place] Family Medicine [address] [place], [place] [phone] Family Medicine, Physician [address] [place] [address] Social History Tobacco Use Types Packs/Day Years [...] filedocumented in this encounter Care Teams Salesperson Meats Relationship Specialty Start Date End Date Mili Padron MD PCP - General 10/04/16 03/13/23 documented as of this encounter
--- OUTSIDE RECORDS SUMMARY | 2025-02-23 10:06 | XMS_ITS | Encounter Summary ---
Author Organization [facility] Address [address] [place] [address] Phone Care Team Providers Care Torts Law Professor Name Role Phone Mili Padron MD Primary Care Provider Unava ilable Encounter Details Date Type Department Care Team (Late st Contact Info) Description 12/09/2012 Documentation [facility] [place] [address] [place], [place] [phone] Family Medicine, Physician [address] [place] [address] Social History Tobacco Use Types Packs/Day Years [...] on filedocumented in this encounter Care Teams Torts Law Professor Relationship Specialty Start Date End Date Mili Padron MD PCP - General 10/04/16 03/13/23 documented as of this encounter
--- OUTSIDE RECORDS SUMMARY | 2025-02-23 10:06 | XMS_ITS | Encounter Summary ---
Author Organization [facility] Address [address] [place] [address] Phone Care Team Providers Care Chief Business Development Officer Name Role Phone Mili Padron MD Primary Care Provider Unava ilable Encounter Details Date Type Department Care Team (Late st Contact Info) Description 05/23/2014 Documentation [facility] [place] Family Medicine [address] [place], [place] [phone] Family Medicine, Physician [address] [place] [address] Social History Tobacco Use Types Packs/Day Years [...] on filedocumented in this encounter Care Teams Chief Business Development Officer Relationship Specialty Start Date End Date Mili Padron MD PCP - General 10/04/16 03/13/23 documented as of this encounter
--- OUTSIDE RECORDS SUMMARY | 2025-02-23 10:06 | XMS_ITS | Encounter Summary ---
Author Organization [facility] Address [address] [place] [address] Phone Care Team Providers Care Post Anesthesia Nurse Name Role Phone Mili Padron MD Primary Care Provider Unava ilable Encounter Details Date Type Department Care Team (Late st Contact Info) Description 08/22/2011 Documentation [facility] [place] Family Medicine [address] [place], [place] [phone] Family Medicine, Physician [address] [place] [address] Social History Tobacco Use Types Packs/Day Years [...] on filedocumented in this encounter Care Teams Post Anesthesia Nurse Relationship Specialty Start Date End Date Mili Padron MD PCP - General 10/04/16 03/13/23 documented as of this encounter
== END 2025-02-23 11:42 | disposition home or self-care (01) ==
LOC: HO.HMCFM 09:37
PROVIDERS: PCP Physician Assistant; Visit Provider Physician Assistant
DX: R79.89 Other specified abnormal findings of blood chemistry (principal); R36.9 Urethral discharge, unspecified; E83.19 Other disorders of iron metabolism; N50.819 Testicular pain, unspecified